=== PATIENT | female | born 1930 | race Caucasian/White ===

== ENCOUNTER 2017-04-19 09:08 | Inpatient (IN) | payer OTHER ==
--- NOTE | 2017-04-19 09:19 | PDOC ---
History of Present Illness - General Chief Complaint: Asthma Stated Complaint: SHORTNESS OF BREATH Time Seen by Provider: 04/19/17 09:18 Past History - Past Medical History Allergies/Adverse Reactions: Allergies Allergy/AdvReac Type Severity Reaction Status Date / Time Penicillins Allergy Verified 09/09/14 14:44 shellfish derived Allergy Verified 09/09/14 14:44 Sulfa (Sulfonamide Allergy Verified 09/09/14 14:44 Antibiotics) [Sulfa(Sulfonamide Antibiotics)] Home Medications: Ambulatory Orders Furosemide [Lasix -] 40 mg PO DAILY 07/19/14 Albuterol 0.083% Nebulizer Sulema [Ventolin 0.083% Nebulizer Soln -] 1 neb NEB Q4H PRN #0 vial 07/26/14 Gabapentin [Neurontin -] 100 mg PO BID capsule 07/26/14 Pantoprazole Sodium [Protonix -] 40 mg PO DAILY tablet.ec 07/26/14 Potassium Chloride Oral Soln [KCl Oral Solution -] 20 meq PO BID cup 07/26/14 Salmeterol/Fluticasone [Advair 100Mcg/50Mcg -] 1 inh IH BID inh 07/26/14 Clotrimazole/Betamet Diprop [Lotrisone -] 1 applic TP BID tube 09/14/14 Enoxaparin [Lovenox -] 40 mg SQ DAILY disp.syrin 09/14/14 Mineral Oil Enema [Fleet Mineral Oil Rectal Enema -] 133 ml NC DAILY PRN #0 enema 09/14/14 Polyethylene Glycol 3350 [Miralax 119 gm Btl -] 17 gm PO BID bottle 09/14/14 Sennosides [Senna -] 2 tab PO BID tablet 09/14/14 traMADol HCL [Ultram -] 50 mg PO Q6H PRN #0 tablet 09/14/14 Asthma: Yes Cardiac Disorders: Yes (atrial fibrillation) Diabetes: Yes GI Disorders: Yes (diverticulitis) HTN: (HYPOTENSION.) - Surgical History Abdominal Surgery: Yes Appendectomy: Yes Cholecystectomy: Yes - Immunization History TDAP Vaccination: Yes Immunization Up to Date: Yes - Suicide/Smoking/Psychosocial Hx Smoking Status: No Smoking History: Never smoked Have you smoked in the past 12 months: No Number of Cigarettes Smoked Daily: 0 Hx Alcohol Use: No Drug/Substance Use Hx: No Substance Use Type: None
--- NOTE | 2017-04-19 09:20 | PDOC ---
Attending Attestation - HPI HPI: 04/19/17 10:21 The patient is a 87 year old female, with a significant past medical history of type 2 diabetes, left hip replacement, A-fib, diverticulitis, hepatitis C, rheumatoid arthritis, COPD, pneumonia, and asthma, who presents to the emergency department with, two days of shortness of breath and a nonproductive cough. As per patients daughter, she lives alone and they check in on her in person and via a camera. She reports the patient was feeling sick a week. She reports yesterday the patient began having labored breathing with an associated non-productive cough. She denies recent fevers, chills, headache or dizziness. She denies recent nausea, vomit, diarrhea or constipation. She denies recent dysuria, frequency, urgency or hematuria. She denies recent chest pain. Allergies: Penicillin, Shellfish derived, Sulfa (Sulfa antibiotics) Social history: Nonsmoker. Denies EtOH use and recreational drug use. Primary Care Physician: Dr. Damián Hernández <Donald Sifuentes - Last Filed: 04/19/17 10:21> - Resident Resident Name: Concetta Delvalle - ED Attending Attestation I have performed the following: I have examined & evaluated the patient, The case was reviewed & discussed with the resident, I agree w/resident's findings & plan, Exceptions are as noted - Physicial Exam PE: GENERAL: Awake, alert, and fully oriented, in no acute distress HEAD: No signs of trauma EYES: PERRLA, EOMI, sclera anicteric, conjunctiva clear ENT: Auricles normal inspection, hearing grossly normal, nares patent, oropharynx clear without exudates. Moist mucosa NECK: Normal ROM, supple, no lymphadenopathy, JVD, or masses LUNGS: +Tachypnea, diffuse wheezes. Able to speak 3-4 word sentences. HEART: Irregularly irregular, normal S1 and S2, no murmurs, rubs or gallops ABDOMEN: Soft, nontender, normoactive bowel sounds. No guarding, no rebound. No masses EXTREMITIES: Normal range of motion, no edema. No clubbing or cyanosis. No cords, erythema, or tenderness NEUROLOGICAL: Cranial nerves II through XII grossly intact. Normal speech. Motor and sensation intact. SKIN: Warm, Dry, normal turgor, no rashes or lesions noted. - Medical Decision Making 04/19/17 09:56 Pt presents with fever, SOB, cough. Sepsis protocol initiated. DDx includes pna , influenza, CHF, asthma exacerbation due to viral illness. No peripheral edema , which would suggest this is likely asthma. Will place on BiPAP to decrease work of breathing, give nebs. Await CXR to further evvaluate. <Maira Almonte - Last Filed: 04/19/17 11:43> Attestations - Attestations 04/19/17 10:22 Documentation prepared by Donald Sifuentes, acting as medical physics teacher for Maira Almonte MD. <Donald Sifuentes - Last Filed: 04/19/17 10:21>
--- NOTE | 2017-04-19 09:30 | PDOC ---
History of Present Illness - General Chief Complaint: Asthma Stated Complaint: SHORTNESS OF BREATH Time Seen by Provider: 04/19/17 09:18 History Source: Patient, Family - History of Present Illness Initial Comments: 04/19/17 09:34 87 y.o. female with a PMH of COPD (not on home O2), Hepatitis C, Asthma, AFib ( not on A/C secondary to low platelets 2/2 Hepatitis C) presents to our ED today c/o 24 hour history of non-productive cough and subjective dyspnea. Patient's daughter @ bedside notes PO temp 99 yesterday evening. As patient continued to cough, patient's daughter decided to bring her to our ED this morning. Patient denies any chest pain, abdominal pain, dysuria/hematuria. Allergy: Sulfa, Penicillin Social: denies alcohol PMD: Dr. June Past History - Past Medical History Allergies/Adverse Reactions: Allergies Allergy/AdvReac Type Severity Reaction Status Date / Time Penicillins Allergy Severe Difficulty Verified 04/19/17 09:21 Breathing shellfish derived Allergy Severe Difficulty Verified 04/19/17 09:21 Breathing Sulfa (Sulfonamide Allergy Intermediate Difficulty Verified 04/19/17 09:21 Antibiotics) Breathing [Sulfa(Sulfonamide Antibiotics)] Home Medications: Ambulatory Orders Furosemide [Lasix -] 40 mg PO DAILY 07/19/14 Albuterol 0.083% Nebulizer Sulema [Ventolin 0.083% Nebulizer Soln -] 1 neb NEB Q4H PRN #0 vial 07/26/14 Pantoprazole Sodium [Protonix -] 40 mg PO DAILY tablet.ec 07/26/14 Potassium Chloride Oral Soln [KCl Oral Solution -] 20 meq PO BID cup 07/26/14 Salmeterol/Fluticasone [Advair 100Mcg/50Mcg -] 1 inh IH BID inh 07/26/14 Clotrimazole/Betamet Diprop [Lotrisone -] 1 applic TP BID tube 09/14/14 Aspirin 81 mg PO ASDIR 04/19/17 Asthma: Yes Cardiac Disorders: Yes (atrial fibrillation) COPD: Yes Diabetes: Yes GI Disorders: Yes (diverticulitis) HTN: (HYPOTENSION.) - Surgical History Abdominal Surgery: Yes Appendectomy: Yes Cholecystectomy: Yes - Immunization History TDAP Vaccination: Yes Immunization Up to Date: Yes - Suicide/Smoking/Psychosocial Hx Smoking Status: No Smoking History: Never smoked Have you smoked in the past 12 months: No Number of Cigarettes Smoked Daily: 0 Hx Alcohol Use: No Drug/Substance Use Hx: No Substance Use Type: None Review of Systems - Review of Systems Constitutional: No: Chills, Fever HEENTM: No: Recent change in vision Respiratory: Yes: Cough. No: Shortness of Breath, Wheezing, Hemoptysis Cardiac (ROS): No: Chest Pain, Lightheadedness, Palpitations, Syncope ABD/GI: No: Constipated, Diarrhea, Nausea, Vomiting : No: Burning, Dysuria All Other Systems: Reviewed and Negative *Physical Exam - Vital Signs Last Vital Signs Temp Pulse Resp BP Pulse Ox 98.4 F 70 32 H 135/79 97 04/19/17 09:18 04/19/17 09:18 04/19/17 09:18 04/19/17 09:18 04/19/17 09:18 - Physical Exam Comments: 04/20/17 17:59 GENERAL: Awake, alert, and fully oriented, in no acute distress HEAD: No signs of trauma EYES: PERRLA, EOMI, sclera anicteric, conjunctiva clear ENT: erythematous oropharynx without any exudates NECK: Normal ROM, supple, no lymphadenopathy, JVD, or masses LUNGS: B/L wheezes asculatated on anterior and posterior lung guerrero HEART: Irregularly irregular, normal S1 and S2, no murmurs, rubs or gallops ABDOMEN: Soft, nontender, normoactive bowel sounds. No guarding, no rebound. No masses EXTREMITIES: Normal range of motion, no edema. No clubbing or cyanosis. No cords, erythema, or tenderness SKIN: Warm, Dry, normal turgor, no rashes or lesions noted ED Treatment Course - LABORATORY CBC & Chemistry Diagram: 04/20/17 08:55 04/20/17 08:55 Medical Decision Making - Medical Decision Making 04/19/17 11:35 87 y.o. female w/ PMH of COPD presents with fever, non-productive cough. Patient RR 32, Temp 100, adult sepsis protocol initiated. Clinical work-up focused on COPD exacerbation, PNA, Asthma. Increased work of breathing, will start patient on NRB. 04/19/17 11:49 Platelet 25 - likely 2/2 to Hepatitis C (65 in 2015). BNP 1200, suggestive of CHF. Case d/w Dr. Cheryl Sanchez - will admit patient to telemetry. Patient on Tylenol for fever + Vanc/Aztreonam. Breathing comfortable on BiPAP. Will continue to monitor while in ED. *DC/Admit/Observation/Transfer Diagnosis at time of Disposition: Fever - Discharge Dispostion Condition at time of disposition: Fair Admit: Yes - Referrals - Patient Instructions - Post Discharge Activity
[2017-04-19 09:43] VITALS: BMI 22.4
[2017-04-19 09:56] LABS: BASO % 0.2 % (0-2.0); EOS % 0.2 % (0-4.5); HEMATOCRIT 37.1 % (32.4-45.2); HEMOGLOBIN 12.3 GM/dL (10.7-15.3); LYMPH % 8.5 % (8-40); MCH 29.3 pg (25.7-33.7); MCHC 33.3 g/dl (32.0-36.0); MEAN CELL VOLUME 87.9 fl (80-96); MEAN PLT VOLUME 9.4 fl (7.5-11.1); MONO % 6.1 % (3.8-10.2); RBC 4.22 M/mm3 (3.60-5.2); RDW 15.6 % (11.6-15.6); WHITE BLOOD COUNT 5.7 K/mm3 (4.0-10.0)
[2017-04-19 10:02] LABS: VENOUS PH 7.37 (7.32-7.42)
[2017-04-19 10:07] LABS: PLATELET COUNT 28 K/MM3 (134-434)
[2017-04-19 10:21] LABS: INR 1.2 (0.82-1.09); PROTHROMBIN TIME (PATIENT) 13.6 SEC (9.98-11.88)
[2017-04-19 10:22] LABS: ANION GAP 9 (8-16); BILIRUBIN,TOTAL 1.3 mg/dL (0.2-1.0); BLOOD UREA NITROGEN 16 mg/dL (7-18); CALCIUM 8.3 mg/dL (8.5-10.1); CHLORIDE 105 mmol/L (98-107); CO2 26 mmol/L (21-32); CREATININE 0.9 mg/dL (0.55-1.02); GLUCOSE,RANDOM 135 mg/dL (74-106); POTASSIUM 3.6 mmol/L (3.5-5.1); SGOT/AST 16 U/L (15-37); SGPT/ALT 14 U/L (12-78); SODIUM 140 mmol/L (136-145); TOT PROT 7.3 g/dl (6.4-8.2)
[2017-04-19 10:24] LABS: ACTIVATED PTT 29.5 SECONDS (26.9-34.4)
[2017-04-19 10:25] LABS: ALK PHOS 90 U/L (45-117)
[2017-04-19] MEDS ORDERED: VANCOMYCIN 1,000 MG in DEXTROSE 5%-WATER - 250 ML IVPB ONE (11:37)
[2017-04-19] MEDS ORDERED: OSELTAMIVIR PHOSPHATE 75 MG CAPSULE PO ONE (11:37)
[2017-04-19] MEDS ORDERED: ACETAMINOPHEN 325 MG TABLET (FP) PO ONE (11:38)
[2017-04-19 11:39] LABS: URINE APPEARANCE SLCLOUDY; URINE BILIRUBIN NEGATIVE (NEGATIVE); URINE BLOOD 3+ (NEGATIVE); URINE COLOR AMBER; URINE GLUCOSE (UA) NEGATIVE (NEGATIVE); URINE KETONE TRACE (NEGATIVE); URINE NITRITE POSITIVE (NEGATIVE); URINE UROBILINOGEN NEGATIVE mg/dL (0.2-1.0)
[2017-04-19] MEDS ORDERED: AZTREONAM 1 GM in DEXTROSE 5%-WATER - 50 ML IVPB ONE (11:40)
[2017-04-19] MEDS ORDERED: VANCOMYCIN 1 GRAM (PRE-DOCKED) 1,000 MG/250 ML BAG IVPB ONE (11:41)
[2017-04-19] MEDS ORDERED: OSELTAMIVIR PHOSPHATE 75 MG CAPSULE ONE (11:41)
[2017-04-19] MEDS ORDERED: ACETAMINOPHEN 325 MG TABLET (FP) ONE (11:41)
[2017-04-19 11:43] LABS: URINE PROTEIN 1+ (NEGATIVE)
[2017-04-19 11:44] LABS: EPI CELLS RARE /HPF (FEW); URINE BACTERIA MANY /hpf (NONE SEEN); URINE LEUK ESTERASE 3+ (NEGATIVE); URINE MUCUS MODERATE; YEAST FEW
[2017-04-19] MEDS ORDERED: ALBUTEROL SO4 0.083% IH SOL 2.5 MG/3 ML VIAL.NEB. NEB PRN (13:34)
--- NOTE | 2017-04-19 13:39 | HP ---
Admitting History and Physical - Primary Care Physician PCP: Damián Hernández - Admission Chief Complaint: cough, dyspnea History of Present Illness: developed dry cough a couple days ago, got worse , by this am with associated dyspnea and fever. in er required BIAP due to respiratory distress. currently feels more comfortable. 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, none now) - Past Surgical History Past Surgical History: Yes: Cholecystectomy, Hysterectomy, Joint Replacement (L Hip) - Smoking History Smoking history: Never smoked Have you smoked in the past 12 months: No Aproximately how many cigarettes per day: 0 - Alcohol/Substance Use Hx Alcohol Use: No - Social History Usual Living Arrangement: Yes: Alone ADL: Independent History of Recent Travel: No Home Medications - Allergies Allergies/Adverse Reactions: Allergies Allergy/AdvReac Type Severity Reaction Status Date / Time Penicillins Allergy Severe Difficulty Verified 04/19/17 09:21 Breathing shellfish derived Allergy Severe Difficulty Verified 04/19/17 09:21 Breathing Sulfa (Sulfonamide Allergy Intermediate Difficulty Verified 04/19/17 09:21 Antibiotics) Breathing [Sulfa(Sulfonamide Antibiotics)] - Home Medications Home Medications: Ambulatory Orders Furosemide [Lasix -] 40 mg PO DAILY 07/19/14 Albuterol 0.083% Nebulizer Sulema [Ventolin 0.083% Nebulizer Soln -] 1 neb NEB Q4H PRN #0 vial 07/26/14 Pantoprazole Sodium [Protonix -] 40 mg PO DAILY tablet.ec 07/26/14 Potassium Chloride Oral Soln [KCl Oral Solution -] 20 meq PO BID cup 07/26/14 Salmeterol/Fluticasone [Advair 100Mcg/50Mcg -] 1 inh IH BID inh 07/26/14 Clotrimazole/Betamet Diprop [Lotrisone -] 1 applic TP BID tube 09/14/14 Aspirin 81 mg PO ASDIR 04/19/17 Family Disease History - Family Disease History Family Disease History: Diabetes: Father (gastic ca?), Mother Review of Systems - Review of Systems Constitutional: reports: Fever, Loss of Appetite, Weakness Respiratory: reports: Cough, SOB on Exertion, Wheezing Physical Examination Vital Signs: Vital Signs Temperature 100.9 F H 04/19/17 09:28 Pulse Rate 82 04/19/17 13:17 Respiratory Rate 28 H 04/19/17 13:17 Blood Pressure 129/65 04/19/17 13:17 O2 Sat by Pulse Oximetry (%) 100 04/19/17 13:17 Constitutional: Yes: Well Nourished, No Distress, Calm, Other (on BIPAP) Eyes: Yes: Conjunctiva Clear HENT: Yes: Normocephalic, Pharyngeal Erythema Neck: Yes: Trachea Midline Cardiovascular: Yes: Pulse Irregular, S1, S2 Respiratory: Yes: Rhonchi, Wheezes (bilaterally, scattered) Gastrointestinal: Yes: Normal Bowel Sounds, Soft Extremities: Yes: WNL Edema: Yes Edema: LLE: 1+, RLE: 1+ Peripheral Pulses WNL: Yes Integumentary: Yes: Bruising (small on upper arms due to recent injuries) Neurological: Yes: WNL ...Motor Strength: WNL Psychiatric: Yes: WNL Labs: CBC, BMP 04/19/17 09:35 04/19/17 09:35 Abnormal Lab Results 04/19/17 04/19/17 04/19/17 09:28 09:35 09:35 Plt Count 28 L* D Neutrophils % 85.0 H D PT with INR 13.60 H INR 1.20 H POC VBG pO2 Random Glucose Lactic Acid Calcium Total Bilirubin B-Natriuretic Peptide Urine Protein 1+ H Urine Ketones Trace H Urine Blood 3+ H Ur Leukocyte Esterase 3+ H 04/19/17 04/19/17 04/19/17 09:35 09:35 09:35 Plt Count Neutrophils % PT with INR INR POC VBG pO2 23.0 L Random Glucose 135 H Lactic Acid 3.2 H* Calcium 8.3 L Total Bilirubin 1.3 H B-Natriuretic Peptide Urine Protein Urine Ketones Urine Blood Ur Leukocyte Esterase 04/19/17 09:35 Plt Count Neutrophils % PT with INR INR POC VBG pO2 Random Glucose Lactic Acid Calcium Total Bilirubin B-Natriuretic Peptide 3039.55 H Urine Protein Urine Ketones Urine Blood Ur Leukocyte Esterase Imaging - Results Chest X-ray: Image Reviewed Problem List - Problems (1) Asthma exacerbation Code(s): J45.901 - UNSPECIFIED ASTHMA WITH (ACUTE) EXACERBATION Qualifiers: Asthma persistence: intermittent (2) Bronchitis Code(s): J40 - BRONCHITIS, NOT SPECIFIED ACUTE OR CHRONIC (3) Thrombocytopenia Code(s): D69.6 - THROMBOCYTOPENIA, UNSPECIFIED (4) Asthma Code(s): J45.909 - UNSPECIFIED ASTHMA, UNCOMPLICATED Qualifiers: Asthma severity: moderate Asthma complication type: with acute exacerbation (5) Hepatitis C Code(s): B19.20 - UNSPECIFIED VIRAL HEPATITIS C WITHOUT HEPATIC COMA Qualifiers: Viral hepatitis chronicity: chronic Hepatic coma status: without hepatic coma Qualified Code(s): B18.2 - Chronic viral hepatitis C Assessment/Plan stop ASA due to thrombocytopenia iv antibiotic iv steroids taper BIPAP as tolerated mild UTI on UA, will follow cultures d/w daughter accoriding to pt's wishes DNR/DNI
[2017-04-19] MEDS ORDERED: methylPREDNISolone NA SUCC 40 MG/1 ML VIAL ONE (14:08)
[2017-04-19] MEDS: methylPREDNISolone NA SUCC 40 MG/1 ML VIAL IVPB SCH ×2 (14:12→17:28)
--- NOTE | 2017-04-19 18:24 | CON.PULM ---
Consult Consult Specialty:: PULMONARY Referred by:: Dr. Sanchez Reason for Consultation:: COPD exacerbation - History of Present Illness Chief Complaint: shortness of breath History of Present Illness: 87yo female with h/o atrial fibrillation, Hep C, asthma/COPD who was admitted with worsening shortness of breath and cough x 2 days. Denies any fevers, chills or sweats. No chest pain or palpitations. She does report a nonproductive cough as well as wheezing and chest tightness. She is maintained at home on Advair and albuterol. No recent travel. She is a never smoker, diagnosed with asthma as an adult. 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, none now) - Past Surgical History Past Surgical History: Yes: Cholecystectomy, Hysterectomy, Joint Replacement (L Hip) - Alcohol/Substance Use Hx Alcohol Use: No - Smoking History Smoking history: Never smoked Have you smoked in the past 12 months: No Aproximately how many cigarettes per day: 0 - Social History ADL: Independent History of Recent Travel: No Home Medications - Allergies Allergies/Adverse Reactions: Allergies Allergy/AdvReac Type Severity Reaction Status Date / Time Penicillins Allergy Severe Difficulty Verified 04/19/17 09:21 Breathing shellfish derived Allergy Severe Difficulty Verified 04/19/17 09:21 Breathing Sulfa (Sulfonamide Allergy Intermediate Difficulty Verified 04/19/17 09:21 Antibiotics) Breathing [Sulfa(Sulfonamide Antibiotics)] - Home Medications Home Medications: Ambulatory Orders Furosemide [Lasix -] 40 mg PO DAILY 07/19/14 Albuterol 0.083% Nebulizer Sulema [Ventolin 0.083% Nebulizer Soln -] 1 neb NEB Q4H PRN #0 vial 07/26/14 Pantoprazole Sodium [Protonix -] 40 mg PO DAILY tablet.ec 07/26/14 Potassium Chloride Oral Soln [KCl Oral Solution -] 20 meq PO BID cup 07/26/14 Salmeterol/Fluticasone [Advair 100Mcg/50Mcg -] 1 inh IH BID inh 07/26/14 Clotrimazole/Betamet Diprop [Lotrisone -] 1 applic TP BID tube 09/14/14 Aspirin 81 mg PO ASDIR 04/19/17 Family Disease History - Family Disease History Family Disease History: Diabetes: Father (gastic ca?), Mother Review of Systems - Review of Systems Constitutional: reports: Malaise, Weakness. denies: Chills, Fever Eyes: denies: Recent Change in Vision HENT: reports: Throat Pain. denies: Nasal Congestion Neck: denies: Stiffness, Tenderness Cardiovascular: reports: Shortness of Breath. denies: Chest Pain, Edema, Palpitations Respiratory: reports: Cough, Exercise Intolerance, SOB, SOB on Exertion, Wheezing. denies: Hemoptysis Gastrointestinal: denies: Abdominal Pain, Nausea, Vomiting Genitourinary: denies: Dysuria Neurological: denies: Dizziness, Headache Physical Exam Vital Sings: Vital Signs Temperature 98.3 F 04/19/17 16:53 Pulse Rate 74 04/19/17 16:53 Respiratory Rate 24 04/19/17 16:53 Blood Pressure 118/67 04/19/17 16:53 O2 Sat by Pulse Oximetry (%) 95 04/19/17 16:53 Constitutional: Yes: Calm Eyes: Yes: Conjunctiva Clear, EOM Intact HENT: Yes: Atraumatic, Normocephalic Neck: Yes: Supple, Trachea Midline Cardiovascular: Yes: Regular Rate and Rhythm Respiratory: Yes: Rhonchi, Wheezes ...Clubbing: No Gastrointestinal: Yes: Normal Bowel Sounds, Soft. No: Tenderness Edema: No Neurological: Yes: Alert, Oriented Labs: CBC, BMP 04/19/17 09:35 04/19/17 09:35 Imaging - Results Chest X-ray: Report Reviewed, Image Reviewed (no infiltrates) Problem List - Problems (1) Asthma exacerbation Code(s): J45.901 - UNSPECIFIED ASTHMA WITH (ACUTE) EXACERBATION Qualifiers: Asthma persistence: intermittent (2) UTI (urinary tract infection) Code(s): N39.0 - URINARY TRACT INFECTION, SITE NOT SPECIFIED (3) Thrombocytopenia Code(s): D69.6 - THROMBOCYTOPENIA, UNSPECIFIED (4) Hepatitis C Code(s): B19.20 - UNSPECIFIED VIRAL HEPATITIS C WITHOUT HEPATIC COMA Qualifiers: Viral hepatitis chronicity: chronic Hepatic coma status: without hepatic coma Qualified Code(s): B18.2 - Chronic viral hepatitis C (5) Atrial fibrillation Code(s): I48.91 - UNSPECIFIED ATRIAL FIBRILLATION Assessment/Plan Acute Asthma/COPD Exacerbation Acute Bronchitis r/o UTI Atrial Fibrillation Thrombocytopenia Hep C - IV medrol - inhaled bronchodilators standing and PRN - monitor peak flow - will start empiric antibiotics - f/u cultures - will add singulair - O2 to keep spO2 >90% - monitor heart rate on standing nebs - monitor CBC - DVT prophylaxis Thank you for this consult Anjum Garrison MD
[2017-04-19] MEDS: ALBUTEROL SO4 2.5/IPRATROPIUM 0.5 INH SOL 3 ML VIAL.NEB. NEB SCH (20:00)
[2017-04-19] MEDS: FLUTICASONE/SALMETEROL 100 MCG/50 MCG DISKUS IH SCH (21:44)
[2017-04-19] MEDS: POTASSIUM CHLORIDE ORAL LIQUID 20 MEQ/15 ML PO SCH (21:45)
[2017-04-19] MEDS: MONTELUKAST NA 10 MG TABLET PO SCH (21:48)
[2017-04-20] MEDS: methylPREDNISolone NA SUCC 40 MG/1 ML VIAL IVPB SCH (02:08)
[2017-04-20] MEDS: ALBUTEROL SO4 2.5/IPRATROPIUM 0.5 INH SOL 3 ML VIAL.NEB. NEB SCH ×3 (07:35→20:30)
--- NOTE | 2017-04-20 08:38 | PN ---
Progress Note (short form) - Note Progress Note: off of BIPAP c/o dry cough throughout the night s1s2 irreg.irreg lungs diffuse bilateral wheezing abd soft no edema aaox3 acute asthma exacerbation bronchitis Afib hepatitis C UTI iv steroids iv abx GI prophylaxis can not give ac due to severe thrombocytopenia due to HCV f/up cultures physical therapy as tolerated Problem List - Problems (1) Asthma exacerbation Code(s): J45.901 - UNSPECIFIED ASTHMA WITH (ACUTE) EXACERBATION Qualifiers: Asthma persistence: intermittent (2) Bronchitis Code(s): J40 - BRONCHITIS, NOT SPECIFIED ACUTE OR CHRONIC (3) Thrombocytopenia Code(s): D69.6 - THROMBOCYTOPENIA, UNSPECIFIED (4) Asthma Code(s): J45.909 - UNSPECIFIED ASTHMA, UNCOMPLICATED Qualifiers: Asthma severity: moderate Asthma complication type: with acute exacerbation (5) Hepatitis C Code(s): B19.20 - UNSPECIFIED VIRAL HEPATITIS C WITHOUT HEPATIC COMA Qualifiers: Viral hepatitis chronicity: chronic Hepatic coma status: without hepatic coma Qualified Code(s): B18.2 - Chronic viral hepatitis C
[2017-04-20 09:16] LABS: BASO % 0.1 % (0-2.0); HEMOGLOBIN 11.4 GM/dL (10.7-15.3); LYMPH % 5.3 % (8-40); MCH 29.5 pg (25.7-33.7); MCHC 33.7 g/dl (32.0-36.0); MEAN CELL VOLUME 87.4 fl (80-96); MONO % 2.6 % (3.8-10.2); RBC 3.89 M/mm3 (3.60-5.2); RDW 15.7 % (11.6-15.6); WHITE BLOOD COUNT 5.9 K/mm3 (4.0-10.0)
[2017-04-20] MEDS ORDERED: PT OWN MED DRAWER 7, Y5N ONE (09:16)
[2017-04-20] MEDS: POTASSIUM CHLORIDE ORAL LIQUID 20 MEQ/15 ML PO SCH ×2 (09:18→21:53)
[2017-04-20] MEDS: FLUTICASONE/SALMETEROL 100 MCG/50 MCG DISKUS IH SCH ×2 (09:20→21:52)
[2017-04-20] MEDS: FUROSEMIDE 40 MG TABLET (FP) PO SCH (09:20)
[2017-04-20] MEDS: guaiFENesin 200 MG/10 ML 10 ML UNIT-DOSE CUPS PO PRN ×2 (09:20→21:53)
[2017-04-20] MEDS: PANTOPRAZOLE 40 MG TABLET (FP) PO SCH (09:20)
[2017-04-20] MEDS: methylPREDNISolone NA SUCC 125 MG/2 ML VIAL IVPB SCH ×2 (09:21→19:25)
[2017-04-20 09:35] LABS: ALBUMIN 3.4 g/dl (3.4-5.0); ANION GAP 10 (8-16); BLOOD UREA NITROGEN 23 mg/dL (7-18); CALCIUM 8.8 mg/dL (8.5-10.1); CHLORIDE 106 mmol/L (98-107); CO2 23 mmol/L (21-32); CREATININE 0.9 mg/dL (0.55-1.02); GLUCOSE,RANDOM 236 mg/dL (74-106); POTASSIUM 4.3 mmol/L (3.5-5.1); SGOT/AST 12 U/L (15-37); SGPT/ALT 13 U/L (12-78); SODIUM 139 mmol/L (136-145)
[2017-04-20 09:37] LABS: ALK PHOS 73 U/L (45-117); BILIRUBIN,TOTAL 1.1 mg/dL (0.2-1.0); TOT PROT 6.8 g/dl (6.4-8.2)
[2017-04-20 09:47] LABS: MEAN PLT VOLUME 10.4 fl (7.5-11.1)
[2017-04-20 09:48] LABS: PLATELET ESTIMATE DECREASED
[2017-04-20 09:52] LABS: PLATELET COUNT 28 K/MM3 (134-434)
--- NOTE | 2017-04-20 10:46 | EKG ---
Test Reason : Blood Pressure : / mmHG Vent. Rate : 084 BPM Atrial Rate : 104 BPM P-R Int : 000 ms QRS Dur : 078 ms QT Int : 362 ms P-R-T Axes : 000 006 029 degrees QTc Int : 427 ms ATRIAL FIBRILLATION LOW VOLTAGE QRS ABNORMAL ECG WHEN COMPARED WITH ECG OF 09-SEP-2014 19:03, NO SIGNIFICANT CHANGE WAS FOUND Confirmed by RAFAELA COULTER MD ([id number]) on 04/20/2017 10:46:35 AM Referred By: Confirmed By:RAFAELA COULTER MD
--- NOTE | 2017-04-20 12:25 | PN ---
Progress Note, Physician History of Present Illness: pulmonary alert,still very congested,+ cough,dyspneic - Current Medication List Current Medications: Active Medications Albuterol Sulfate (Ventolin 0.083% Nebulizer Soln -) 1 amp NEB Q4H PRN PRN Reason: SHORT OF BREATH/WHEEZING Last Admin: 04/19/17 16:56 Dose: 1 amp Albuterol/Ipratropium (Duoneb -) 1 amp NEB RTID [facility] Last Admin: 04/20/17 07:35 Dose: 1 amp Furosemide (Lasix -) 40 mg PO DAILY [facility] Last Admin: 04/20/17 09:20 Dose: 40 mg Guaifenesin (Robitussin -) 10 ml PO Q6H PRN PRN Reason: COUGH Last Admin: 04/20/17 09:20 Dose: 10 ml Levofloxacin (Levaquin 250 Mg Premixed Ivpb -) 250 mg in 50 mls @ 50 mls/hr IVPB DAILY [facility] Methylprednisolone Sodium Succinate (Solu-Medrol -) 60 mg IVPB Q8H-IV [facility] Last Admin: 04/20/17 09:21 Dose: 60 mg Montelukast Sodium (Singulair -) 10 mg PO HS [facility] Last Admin: 04/19/17 21:48 Dose: 10 mg Pantoprazole Sodium (Protonix -) 40 mg PO DAILY [facility] Last Admin: 04/20/17 09:20 Dose: 40 mg Potassium Chloride (Potassium Chloride Oral Liquid) 20 meq PO BID [facility] Last Admin: 04/20/17 09:18 Dose: 20 meq Fluticasone/Salmeterol (Advair 100mcg/50mcg -) 1 puff IH BID [facility] Last Admin: 04/20/17 09:20 Dose: 1 puff - Objective Vital Signs: Vital Signs Temperature 97.9 F 04/20/17 10:00 Pulse Rate 89 04/20/17 10:00 Respiratory Rate 20 04/20/17 10:00 Blood Pressure 113/58 04/20/17 10:00 O2 Sat by Pulse Oximetry (%) 96 04/20/17 09:00 Constitutional: Yes: Well Nourished, Calm Eyes: Yes: WNL HENT: Yes: WNL Neck: Yes: WNL Cardiovascular: Yes: Regular Rate and Rhythm, S1, S2 Respiratory: Yes: Rhonchi (bilateral wheezes and rhonchi), Wheezes Gastrointestinal: Yes: Normal Bowel Sounds, Soft Extremities: Yes: WNL Edema: No Labs: CBC, BMP 04/20/17 08:55 04/20/17 08:55 INR, PTT INR 1.20 (0.82-1.09) H 04/19/17 09:35 Assessment/Plan Problem List - Problems (1) Asthma exacerbation Code(s): J45.901 - UNSPECIFIED ASTHMA WITH (ACUTE) EXACERBATION Qualifiers: Asthma persistence: intermittent (2) UTI (urinary tract infection) Code(s): N39.0 - URINARY TRACT INFECTION, SITE NOT SPECIFIED (3) Thrombocytopenia Code(s): D69.6 - THROMBOCYTOPENIA, UNSPECIFIED (4) Hepatitis C Code(s): B19.20 - UNSPECIFIED VIRAL HEPATITIS C WITHOUT HEPATIC COMA Qualifiers: Viral hepatitis chronicity: chronic Hepatic coma status: without hepatic coma Qualified Code(s): B18.2 - Chronic viral hepatitis C (5) Atrial fibrillation Code(s): I48.91 - UNSPECIFIED ATRIAL FIBRILLATION Assessment/Plan Acute Asthma/COPD Exacerbation Acute Bronchitis r/o UTI Atrial Fibrillation Thrombocytopenia Hep C - IV medrol same dose - inhaled bronchodilators - monitor peak flow - empiric antibiotics - singulair - O2 to keep spO2 >90% - monitor heart rate on standing nebs - monitor CBC,plt ct - DVT prophylaxis DR AVERY
[2017-04-20] MEDS: MONTELUKAST NA 10 MG TABLET PO SCH (21:53)
[2017-04-21] MEDS: methylPREDNISolone NA SUCC 125 MG/2 ML VIAL IVPB SCH ×3 (02:24→17:11)
[2017-04-21] MEDS: guaiFENesin 200 MG/10 ML 10 ML UNIT-DOSE CUPS PO PRN (06:15)
--- NOTE | 2017-04-21 06:45 | PN ---
Progress Note (short form) - Note Progress Note: c/o dry cough throughout the night CBC, BMP 04/20/17 08:55 04/20/17 08:55 BNP 3600 Vital Signs Period Temp Pulse Resp BP Sys/Mcnamara Pulse Ox Last 24 Hr 97.4 F-97.9 F 74-89 18-20 113-137/57-81 98 s1s2 irreg.irreg lungs diffuse bilateral wheezing-little better abd soft no edema aaox3 acute asthma exacerbation bronchitis Afib hepatitis C UTI iv steroids iv abx GI prophylaxis can not give ac due to severe thrombocytopenia due to HCV f/up cultures physical therapy as tolerated check ECHO repeat CXR Problem List - Problems (1) Asthma exacerbation Code(s): J45.901 - UNSPECIFIED ASTHMA WITH (ACUTE) EXACERBATION Qualifiers: Asthma persistence: intermittent (2) Bronchitis Code(s): J40 - BRONCHITIS, NOT SPECIFIED ACUTE OR CHRONIC (3) Thrombocytopenia Code(s): D69.6 - THROMBOCYTOPENIA, UNSPECIFIED (4) Asthma Code(s): J45.909 - UNSPECIFIED ASTHMA, UNCOMPLICATED Qualifiers: Asthma severity: moderate Asthma complication type: with acute exacerbation (5) Hepatitis C Code(s): B19.20 - UNSPECIFIED VIRAL HEPATITIS C WITHOUT HEPATIC COMA Qualifiers: Viral hepatitis chronicity: chronic Hepatic coma status: without hepatic coma Qualified Code(s): B18.2 - Chronic viral hepatitis C
[2017-04-21] MEDS: ALBUTEROL SO4 2.5/IPRATROPIUM 0.5 INH SOL 3 ML VIAL.NEB. NEB SCH ×3 (07:40→20:46)
[2017-04-21] MEDS: glipiZIDE 5 MG TABLET (FP) PO SCH ×2 (07:41→17:10)
[2017-04-21] MEDS: FUROSEMIDE 40 MG TABLET (FP) PO SCH (09:16)
[2017-04-21] MEDS: PANTOPRAZOLE 40 MG TABLET (FP) PO SCH (09:16)
[2017-04-21] MEDS: FLUTICASONE/SALMETEROL 100 MCG/50 MCG DISKUS IH SCH ×2 (09:16→22:43)
[2017-04-21] MEDS: POTASSIUM CHLORIDE TABS 20 MEQ TABLET.ER (FP) PO SCH ×2 (09:56→22:43)
--- NOTE | 2017-04-21 11:19 | PN ---
Progress Note, Physician History of Present Illness: PULMONARY ALERT,LESS CONGESTED,+ COUGH - Current Medication List Current Medications: Active Medications Albuterol Sulfate (Ventolin 0.083% Nebulizer Soln -) 1 amp NEB Q4H PRN PRN Reason: SHORT OF BREATH/WHEEZING Last Admin: 04/19/17 16:56 Dose: 1 amp Albuterol/Ipratropium (Duoneb -) 1 amp NEB RTID [facility] Last Admin: 04/21/17 07:40 Dose: 1 amp Furosemide (Lasix -) 40 mg PO DAILY [facility] Last Admin: 04/21/17 09:16 Dose: 40 mg Glipizide (Glucotrol -) 5 mg PO BID@0700,1630 [facility] Last Admin: 04/21/17 07:41 Dose: 5 mg Guaifenesin (Robitussin -) 10 ml PO Q6H PRN PRN Reason: COUGH Last Admin: 04/21/17 06:15 Dose: 10 ml Levofloxacin (Levaquin 250 Mg Premixed Ivpb -) 250 mg in 50 mls @ 50 mls/hr IVPB DAILY [facility] Last Admin: 04/21/17 09:15 Dose: 50 mls/hr Methylprednisolone Sodium Succinate (Solu-Medrol -) 60 mg IVPB Q8H-IV [facility] Last Admin: 04/21/17 09:18 Dose: 60 mg Montelukast Sodium (Singulair -) 10 mg PO HS [facility] Last Admin: 04/20/17 21:53 Dose: 10 mg Pantoprazole Sodium (Protonix -) 40 mg PO DAILY [facility] Last Admin: 04/21/17 09:16 Dose: 40 mg Potassium Chloride (K-Dur -) 20 meq PO BID [facility] Last Admin: 04/21/17 09:56 Dose: 20 meq Fluticasone/Salmeterol (Advair 100mcg/50mcg -) 1 puff IH BID [facility] Last Admin: 04/21/17 09:16 Dose: 1 puff - Objective Vital Signs: Vital Signs Temperature 98.1 F 04/21/17 10:00 Pulse Rate 74 04/21/17 06:00 Respiratory Rate 20 04/21/17 10:00 Blood Pressure 127/66 04/21/17 10:00 O2 Sat by Pulse Oximetry (%) 98 04/21/17 09:00 Constitutional: Yes: Calm, Thin Eyes: Yes: WNL, Other Neck: Yes: WNL Cardiovascular: Yes: Pulse Irregular, S1, S2 Respiratory: Yes: Wheezes (LESS WHEEZES BILATERALLY) Gastrointestinal: Yes: Normal Bowel Sounds, Soft Extremities: Yes: WNL Edema: No Labs: CBC, BMP Assessment/Plan Problem List - Problems (1) Asthma exacerbation Code(s): J45.901 - UNSPECIFIED ASTHMA WITH (ACUTE) EXACERBATION Qualifiers: Asthma persistence: intermittent (2) UTI (urinary tract infection) Code(s): N39.0 - URINARY TRACT INFECTION, SITE NOT SPECIFIED (3) Thrombocytopenia Code(s): D69.6 - THROMBOCYTOPENIA, UNSPECIFIED (4) Hepatitis C Code(s): B19.20 - UNSPECIFIED VIRAL HEPATITIS C WITHOUT HEPATIC COMA Qualifiers: Viral hepatitis chronicity: chronic Hepatic coma status: without hepatic coma Qualified Code(s): B18.2 - Chronic viral hepatitis C (5) Atrial fibrillation Code(s): I48.91 - UNSPECIFIED ATRIAL FIBRILLATION Assessment/Plan Acute Asthma/COPD Exacerbation slowly improving Acute Bronchitis r/o UTI Atrial Fibrillation Thrombocytopenia Hep C - IV medrol same dose - inhaled bronchodilators - monitor peak flow - empiric antibiotics - singulair - O2 to keep spO2 >90% - monitor heart rate on standing nebs - monitor CBC,plt ct - DVT prophylaxis DR AVERY
[2017-04-21] MEDS: MONTELUKAST NA 10 MG TABLET PO SCH (22:43)
[2017-04-22] MEDS: methylPREDNISolone NA SUCC 125 MG/2 ML VIAL IVPB SCH (02:41)
[2017-04-22] MEDS: glipiZIDE 5 MG TABLET (FP) PO SCH (06:43)
--- NOTE | 2017-04-22 07:07 | PN ---
Progress Note (short form) - Note Progress Note: c/o dry cough but better overall Vital Signs Period Temp Pulse Resp BP Sys/Mcnamara Pulse Ox Last 24 Hr 97.7 F-98.6 F 72-106 18-20 108-127/55-78 98-98 s1s2 irreg.irreg lungs diffuse bilateral wheezing- better abd soft no edema aaox3 echo reviewed cxr no infiltrate acute asthma exacerbation bronchitis Afib hepatitis C UTI iv steroids to taper iv abx GI prophylaxis can not give ac due to severe thrombocytopenia due to HCV physical therapy as tolerated can transfer to regular floor Problem List - Problems (1) Asthma exacerbation Code(s): J45.901 - UNSPECIFIED ASTHMA WITH (ACUTE) EXACERBATION Qualifiers: Asthma persistence: intermittent (2) Bronchitis Code(s): J40 - BRONCHITIS, NOT SPECIFIED ACUTE OR CHRONIC (3) Thrombocytopenia Code(s): D69.6 - THROMBOCYTOPENIA, UNSPECIFIED (4) Asthma Code(s): J45.909 - UNSPECIFIED ASTHMA, UNCOMPLICATED Qualifiers: Asthma severity: moderate Asthma complication type: with acute exacerbation (5) Hepatitis C Code(s): B19.20 - UNSPECIFIED VIRAL HEPATITIS C WITHOUT HEPATIC COMA Qualifiers: Viral hepatitis chronicity: chronic Hepatic coma status: without hepatic coma Qualified Code(s): B18.2 - Chronic viral hepatitis C
[2017-04-22] MEDS: ALBUTEROL SO4 2.5/IPRATROPIUM 0.5 INH SOL 3 ML VIAL.NEB. NEB SCH ×3 (08:18→20:45)
[2017-04-22] MEDS: POTASSIUM CHLORIDE TABS 20 MEQ TABLET.ER (FP) PO SCH (09:48)
[2017-04-22] MEDS: FUROSEMIDE 40 MG TABLET (FP) PO SCH (09:48)
[2017-04-22] MEDS: PANTOPRAZOLE 40 MG TABLET (FP) PO SCH (09:48)
[2017-04-22] MEDS: methylPREDNISolone NA SUCC 40 MG/1 ML VIAL IVPB SCH ×2 (09:48→18:10)
[2017-04-22] MEDS: FLUTICASONE/SALMETEROL 100 MCG/50 MCG DISKUS IH SCH ×2 (09:48→21:53)
--- NOTE | 2017-04-22 11:04 | PN ---
Progress Note (short form) - Note Progress Note: PULMONARY Still with shortness of breath, cough and wheezing. Last Vital Signs Temp Pulse Resp BP Pulse Ox 98.3 F 88 20 115/66 98 04/22/17 06:00 04/22/17 08:53 04/22/17 08:53 04/22/17 08:53 04/22/17 08:52 Gen: mildly tachypneic with speaking Heart: RRR Lung: bilateral wheezes, rhonchi Abd: soft, nontender Ext: no edema CBC, BMP 04/20/17 08:55 04/20/17 08:55 Active Medications Albuterol Sulfate (Ventolin 0.083% Nebulizer Soln -) 1 amp NEB Q4H PRN PRN Reason: SHORT OF BREATH/WHEEZING Last Admin: 04/19/17 16:56 Dose: 1 amp Albuterol/Ipratropium (Duoneb -) 1 amp NEB RTID [facility] Last Admin: 04/22/17 08:18 Dose: 1 amp Furosemide (Lasix -) 40 mg PO DAILY [facility] Last Admin: 04/22/17 09:48 Dose: 40 mg Guaifenesin (Robitussin -) 10 ml PO Q6H PRN PRN Reason: COUGH Last Admin: 04/21/17 06:15 Dose: 10 ml Levofloxacin (Levaquin 250 Mg Premixed Ivpb -) 250 mg in 50 mls @ 50 mls/hr IVPB DAILY [facility] Last Admin: 04/22/17 09:48 Dose: 50 mls/hr Methylprednisolone Sodium Succinate (Solu-Medrol -) 40 mg IVPB Q8H-IV [facility] Last Admin: 04/22/17 09:48 Dose: 40 mg Montelukast Sodium (Singulair -) 10 mg PO HS [facility] Last Admin: 04/21/17 22:43 Dose: 10 mg Pantoprazole Sodium (Protonix -) 40 mg PO DAILY [facility] Last Admin: 04/22/17 09:48 Dose: 40 mg Potassium Chloride (K-Dur -) 20 meq PO BID [facility] Last Admin: 04/22/17 09:48 Dose: 20 meq Fluticasone/Salmeterol (Advair 100mcg/50mcg -) 1 puff IH BID [facility] Last Admin: 04/22/17 09:48 Dose: 1 puff A/P Acute Asthma/COPD Exacerbation Acute Bronchitis r/o UTI Atrial Fibrillation Thrombocytopenia Hep C - continue medrol at current dose - inhaled bronchodilators standing and PRN - monitor peak flow - continue empiric antibiotics - singulair - O2 to keep spO2 >90% - DVT prophylaxis Problem List - Problems (1) Asthma exacerbation Code(s): J45.901 - UNSPECIFIED ASTHMA WITH (ACUTE) EXACERBATION Qualifiers: Asthma persistence: intermittent (2) UTI (urinary tract infection) Code(s): N39.0 - URINARY TRACT INFECTION, SITE NOT SPECIFIED (3) Thrombocytopenia Code(s): D69.6 - THROMBOCYTOPENIA, UNSPECIFIED (4) Hepatitis C Code(s): B19.20 - UNSPECIFIED VIRAL HEPATITIS C WITHOUT HEPATIC COMA Qualifiers: Viral hepatitis chronicity: chronic Hepatic coma status: without hepatic coma Qualified Code(s): B18.2 - Chronic viral hepatitis C (5) Atrial fibrillation Code(s): I48.91 - UNSPECIFIED ATRIAL FIBRILLATION
[2017-04-22] MEDS ORDERED: ALBUTEROL SO4 0.083% IH SOL 2.5 MG/3 ML VIAL.NEB. NEB PRN (18:42)
[2017-04-22] MEDS ORDERED: PT OWN MED DRAWER 7, Y5N ONE (18:57)
[2017-04-22] MEDS: MONTELUKAST NA 10 MG TABLET PO SCH (21:39)
[2017-04-22] MEDS ORDERED: POTASSIUM CHLORIDE TABS 20 MEQ TABLET.ER (FP) PO SCH (22:00)
[2017-04-23] MEDS: methylPREDNISolone NA SUCC 40 MG/1 ML VIAL IVPB SCH ×3 (01:15→18:55)
[2017-04-23 06:39] LABS: BASO % 0.1 % (0-2.0); EOS % 0.1 % (0-4.5); HEMATOCRIT 35.2 % (32.4-45.2); HEMOGLOBIN 11.9 GM/dL (10.7-15.3); LYMPH % 7.8 % (8-40); MCH 29.5 pg (25.7-33.7); MCHC 33.9 g/dl (32.0-36.0); MEAN CELL VOLUME 86.9 fl (80-96); MEAN PLT VOLUME 10.6 fl (7.5-11.1); MONO % 3.8 % (3.8-10.2); NEUT % 88.2 % (42.8-82.8); PLATELET COUNT 71 K/MM3 (134-434); RBC 4.05 M/mm3 (3.60-5.2); WHITE BLOOD COUNT 2.7 K/mm3 (4.0-10.0)
[2017-04-23 07:58] LABS: CALCIUM 8.6 mg/dL (8.5-10.1); CHLORIDE 103 mmol/L (98-107); POTASSIUM 3.9 mmol/L (3.5-5.1); SODIUM 140 mmol/L (136-145)
[2017-04-23 08:04] LABS: ALBUMIN 3.1 g/dl (3.4-5.0); ALK PHOS 68 U/L (45-117); ANION GAP 14 (8-16); BILIRUBIN,TOTAL 0.8 mg/dL (0.2-1.0); BLOOD UREA NITROGEN 33 mg/dL (7-18); CO2 23 mmol/L (21-32); CREATININE 0.9 mg/dL (0.55-1.02); GLUCOSE,RANDOM 145 mg/dL (74-106); SGOT/AST 41 U/L (15-37); SGPT/ALT 56 U/L (12-78); TOT PROT 6.3 g/dl (6.4-8.2)
--- NOTE | 2017-04-23 08:39 | PN ---
Progress Note (short form) - Note Progress Note: CBC, BMP 04/23/17 06:00 04/23/17 06:00 Vital Signs Period Temp Pulse Resp BP Sys/Mcnamara Pulse Ox Last 24 Hr 97.8 F-98.9 F 72-103 20-20 110-127/62-75 98-98 s1s2 irreg.irreg lungs diffuse bilateral wheezing abd soft no edema aaox3 WALKS WITH pt echo reviewed cxr no infiltrate acute asthma exacerbation bronchitis Afib hepatitis C UTI iv steroids same dose today iv abx GI prophylaxis can not give ac due to severe thrombocytopenia due to HCV physical therapy as tolerated stool softener repeat cbc-monitor leukocytosis Problem List - Problems (1) Asthma exacerbation Code(s): J45.901 - UNSPECIFIED ASTHMA WITH (ACUTE) EXACERBATION Qualifiers: Asthma persistence: intermittent (2) Bronchitis Code(s): J40 - BRONCHITIS, NOT SPECIFIED ACUTE OR CHRONIC (3) Thrombocytopenia Code(s): D69.6 - THROMBOCYTOPENIA, UNSPECIFIED (4) Asthma Code(s): J45.909 - UNSPECIFIED ASTHMA, UNCOMPLICATED Qualifiers: Asthma severity: moderate Asthma complication type: with acute exacerbation (5) Hepatitis C Code(s): B19.20 - UNSPECIFIED VIRAL HEPATITIS C WITHOUT HEPATIC COMA Qualifiers: Viral hepatitis chronicity: chronic Hepatic coma status: without hepatic coma Qualified Code(s): B18.2 - Chronic viral hepatitis C
[2017-04-23] MEDS: ALBUTEROL SO4 2.5/IPRATROPIUM 0.5 INH SOL 3 ML VIAL.NEB. NEB SCH ×3 (09:10→20:03)
[2017-04-23] MEDS ORDERED: PT OWN MED DRAWER 7, Y5N ONE ×2 (10:56→21:17)
[2017-04-23] MEDS: PANTOPRAZOLE 40 MG TABLET (FP) PO SCH (10:57)
[2017-04-23] MEDS: FLUTICASONE/SALMETEROL 100 MCG/50 MCG DISKUS IH SCH ×2 (10:57→21:41)
[2017-04-23] MEDS: guaiFENesin 200 MG/10 ML 10 ML UNIT-DOSE CUPS PO PRN (10:57)
[2017-04-23] MEDS: FUROSEMIDE 40 MG TABLET (FP) PO SCH (10:57)
[2017-04-23] MEDS: POTASSIUM CHLORIDE TABS 10 MEQ TABLET.ER (FP) PO SCH ×2 (10:59→21:40)
--- NOTE | 2017-04-23 12:55 | PN ---
Progress Note, Physician History of Present Illness: pulmonary alert,oob-chair,c/o cough,less dyspneic - Current Medication List Current Medications: Active Medications Albuterol Sulfate (Ventolin 0.083% Nebulizer Soln -) 1 amp NEB Q4H PRN PRN Reason: SHORT OF BREATH/WHEEZING Albuterol/Ipratropium (Duoneb -) 1 amp NEB RTID [facility] Last Admin: 04/23/17 09:10 Dose: 1 amp Furosemide (Lasix -) 40 mg PO DAILY [facility] Last Admin: 04/23/17 10:57 Dose: 40 mg Guaifenesin (Robitussin -) 10 ml PO Q6H PRN PRN Reason: COUGH Last Admin: 04/23/17 10:57 Dose: 10 ml Levofloxacin (Levaquin 250 Mg Premixed Ivpb -) 250 mg in 50 mls @ 50 mls/hr IVPB DAILY [facility] Methylprednisolone Sodium Succinate (Solu-Medrol -) 40 mg IVPB Q8H-IV [facility] Last Admin: 04/23/17 10:57 Dose: 40 mg Montelukast Sodium (Singulair -) 10 mg PO HS [facility] Last Admin: 04/22/17 21:39 Dose: 10 mg Pantoprazole Sodium (Protonix -) 40 mg PO DAILY [facility] Last Admin: 04/23/17 10:57 Dose: 40 mg Potassium Chloride (K-Dur -) 10 meq PO BID [facility] Last Admin: 04/23/17 10:59 Dose: 10 meq Fluticasone/Salmeterol (Advair 100mcg/50mcg -) 1 puff IH BID [facility] Last Admin: 04/23/17 10:57 Dose: 1 puff - Objective Vital Signs: Vital Signs Temperature 97.8 F 04/23/17 06:00 Pulse Rate 103 H 04/23/17 06:00 Respiratory Rate 20 04/23/17 06:00 Blood Pressure 127/71 04/23/17 06:00 O2 Sat by Pulse Oximetry (%) 98 04/22/17 21:00 Constitutional: Yes: Calm, Thin Eyes: Yes: WNL HENT: Yes: WNL Neck: Yes: WNL Cardiovascular: Yes: Pulse Irregular, S1, S2 Respiratory: Yes: Wheezes (bilateral wheezes) Gastrointestinal: Yes: Normal Bowel Sounds, Soft Extremities: Yes: WNL Edema: No Labs: CBC, BMP 04/23/17 06:00 04/23/17 06:00 INR, PTT INR 1.20 (0.82-1.09) H 04/19/17 09:35 Assessment/Plan Problem List - Problems (1) Asthma exacerbation Code(s): J45.901 - UNSPECIFIED ASTHMA WITH (ACUTE) EXACERBATION Qualifiers: Asthma persistence: intermittent (2) UTI (urinary tract infection) Code(s): N39.0 - URINARY TRACT INFECTION, SITE NOT SPECIFIED (3) Thrombocytopenia Code(s): D69.6 - THROMBOCYTOPENIA, UNSPECIFIED (4) Hepatitis C Code(s): B19.20 - UNSPECIFIED VIRAL HEPATITIS C WITHOUT HEPATIC COMA Qualifiers: Viral hepatitis chronicity: chronic Hepatic coma status: without hepatic coma Qualified Code(s): B18.2 - Chronic viral hepatitis C (5) Atrial fibrillation Code(s): I48.91 - UNSPECIFIED ATRIAL FIBRILLATION Assessment/Plan Acute Asthma/COPD Exacerbation slowly improving Acute Bronchitis r/o UTI Atrial Fibrillation Thrombocytopenia Hep C - IV medrol - inhaled bronchodilators - monitor peak flow - empiric antibiotics - singulair - O2 to keep spO2 >90% - monitor heart rate on standing nebs - monitor CBC,plt ct - DVT prophylaxis DR AVERY
[2017-04-23] MEDS: SENNOSIDES 8.6MG TABLET (FP) PO SCH (21:40)
[2017-04-23] MEDS: MONTELUKAST NA 10 MG TABLET PO SCH (21:40)
[2017-04-24] MEDS: methylPREDNISolone NA SUCC 40 MG/1 ML VIAL IVPB SCH ×3 (01:42→17:22)
[2017-04-24] MEDS: ALBUTEROL SO4 2.5/IPRATROPIUM 0.5 INH SOL 3 ML VIAL.NEB. NEB SCH ×3 (08:05→20:25)
[2017-04-24 08:32] LABS: BASO % 0.2 % (0-2.0); HEMATOCRIT 36.5 % (32.4-45.2); HEMOGLOBIN 12.4 GM/dL (10.7-15.3); LYMPH % 5.8 % (8-40); MCH 29.6 pg (25.7-33.7); MEAN PLT VOLUME 10.3 fl (7.5-11.1); MONO % 4.9 % (3.8-10.2); NEUT % 89.1 % (42.8-82.8); PLATELET COUNT 79 K/MM3 (134-434); RDW 15.5 % (11.6-15.6); WHITE BLOOD COUNT 3.5 K/mm3 (4.0-10.0)
[2017-04-24 08:55] LABS: ALBUMIN 3.3 g/dl (3.4-5.0); ANION GAP 10 (8-16); BLOOD UREA NITROGEN 34 mg/dL (7-18); CALCIUM 8.3 mg/dL (8.5-10.1); CHLORIDE 103 mmol/L (98-107); CO2 26 mmol/L (21-32); GLUCOSE,RANDOM 128 mg/dL (74-106); SODIUM 139 mmol/L (136-145)
[2017-04-24 09:01] LABS: ALK PHOS 70 U/L (45-117); BILIRUBIN,TOTAL 1.1 mg/dL (0.2-1.0); SGOT/AST 38 U/L (15-37); SGPT/ALT 70 U/L (12-78); TOT PROT 6.3 g/dl (6.4-8.2)
--- NOTE | 2017-04-24 09:06 | PN ---
Progress Note (short form) - Note Progress Note: CBC, BMP 04/24/17 07:30 Vital Signs Period Temp Pulse Resp BP Sys/Mcnamara Pulse Ox Last 24 Hr 97.6 F-98.0 F 77-99 16-18 106-125/51-71 98 s1s2 irreg.irreg lungs diffuse bilateral wheezing abd soft no edema aaox3 wheezing on exertion cough present acute asthma exacerbation bronchitis Afib hepatitis C chronic UTI iv steroids same dose today iv abx day GI prophylaxis can not give ac due to severe thrombocytopenia due to HCV physical therapy as tolerated stool softener Problem List - Problems (1) Asthma exacerbation Code(s): J45.901 - UNSPECIFIED ASTHMA WITH (ACUTE) EXACERBATION Qualifiers: Asthma persistence: intermittent (2) Bronchitis Code(s): J40 - BRONCHITIS, NOT SPECIFIED ACUTE OR CHRONIC (3) Thrombocytopenia Code(s): D69.6 - THROMBOCYTOPENIA, UNSPECIFIED (4) Asthma Code(s): J45.909 - UNSPECIFIED ASTHMA, UNCOMPLICATED Qualifiers: Asthma severity: moderate Asthma complication type: with acute exacerbation (5) Hepatitis C Code(s): B19.20 - UNSPECIFIED VIRAL HEPATITIS C WITHOUT HEPATIC COMA Qualifiers: Viral hepatitis chronicity: chronic Hepatic coma status: without hepatic coma Qualified Code(s): B18.2 - Chronic viral hepatitis C
[2017-04-24] MEDS ORDERED: PT OWN MED DRAWER 7, Y5N ONE ×2 (09:46→19:23)
[2017-04-24] MEDS: SENNOSIDES 8.6MG TABLET (FP) PO SCH ×2 (09:56→21:26)
[2017-04-24] MEDS: PANTOPRAZOLE 40 MG TABLET (FP) PO SCH (09:56)
[2017-04-24] MEDS: FUROSEMIDE 40 MG TABLET (FP) PO SCH (09:56)
[2017-04-24] MEDS: POTASSIUM CHLORIDE TABS 10 MEQ TABLET.ER (FP) PO SCH ×2 (09:56→21:25)
[2017-04-24] MEDS: FLUTICASONE/SALMETEROL 100 MCG/50 MCG DISKUS IH SCH ×2 (09:57→21:32)
[2017-04-24] MEDS ORDERED: ACETAMINOPHEN 325 MG TABLET (FP) PO PRN (12:12)
[2017-04-24] MEDS: DOCUSATE SODIUM 100 MG CAPSULE (FP) PO SCH ×2 (13:12→21:26)
[2017-04-24] MEDS: guaiFENesin 200 MG/10 ML 10 ML UNIT-DOSE CUPS PO PRN (13:12)
--- NOTE | 2017-04-24 13:49 | PN ---
Progress Note, Physician History of Present Illness: pulmonary alert,still congested,+cough,+dyspnea - Current Medication List Current Medications: Active Medications Acetaminophen (Tylenol -) 650 mg PO Q6H PRN PRN Reason: HEADACHE Albuterol Sulfate (Ventolin 0.083% Nebulizer Soln -) 1 amp NEB Q4H PRN PRN Reason: SHORT OF BREATH/WHEEZING Albuterol/Ipratropium (Duoneb -) 1 amp NEB RTID [facility] Last Admin: 04/24/17 08:05 Dose: 1 amp Docusate Sodium (Colace -) 100 mg PO TID [facility] Last Admin: 04/24/17 13:12 Dose: 100 mg Furosemide (Lasix -) 40 mg PO DAILY [facility] Last Admin: 04/24/17 09:56 Dose: 40 mg Guaifenesin (Robitussin -) 10 ml PO Q6H PRN PRN Reason: COUGH Last Admin: 04/24/17 13:12 Dose: 10 ml Levofloxacin (Levaquin 250 Mg Premixed Ivpb -) 250 mg in 50 mls @ 50 mls/hr IVPB DAILY [facility] Last Admin: 04/24/17 09:57 Dose: 50 mls/hr Methylprednisolone Sodium Succinate (Solu-Medrol -) 40 mg IVPB Q8H-IV [facility] Last Admin: 04/24/17 09:57 Dose: 40 mg Montelukast Sodium (Singulair -) 10 mg PO HS [facility] Last Admin: 04/23/17 21:40 Dose: 10 mg Pantoprazole Sodium (Protonix -) 40 mg PO DAILY [facility] Last Admin: 04/24/17 09:56 Dose: 40 mg Potassium Chloride (K-Dur -) 10 meq PO BID [facility] Fluticasone/Salmeterol (Advair 100mcg/50mcg -) 1 puff IH BID [facility] Last Admin: 04/24/17 09:57 Dose: 1 puff Senna (Senna -) 1 tab PO BID [facility] Last Admin: 04/24/17 09:56 Dose: 1 tab - Objective Vital Signs: Vital Signs Temperature 98.7 F 04/24/17 09:00 Pulse Rate 102 H 04/24/17 09:00 Respiratory Rate 18 04/24/17 09:00 Blood Pressure 138/88 04/24/17 09:00 O2 Sat by Pulse Oximetry (%) 97 04/24/17 09:00 Constitutional: Yes: Calm, Thin Eyes: Yes: WNL HENT: Yes: WNL Neck: Yes: WNL Cardiovascular: Yes: Pulse Irregular, S1, S2 Respiratory: Yes: Rhonchi (bilateral rhonchi,wheezes) Gastrointestinal: Yes: Normal Bowel Sounds, Soft Extremities: Yes: WNL Edema: No Labs: CBC, BMP 04/24/17 07:30 04/24/17 07:30 INR, PTT INR 1.20 (0.82-1.09) H 04/19/17 09:35 Assessment/Plan Problem List - Problems (1) Asthma exacerbation Code(s): J45.901 - UNSPECIFIED ASTHMA WITH (ACUTE) EXACERBATION Qualifiers: Asthma persistence: intermittent (2) UTI (urinary tract infection) Code(s): N39.0 - URINARY TRACT INFECTION, SITE NOT SPECIFIED (3) Thrombocytopenia Code(s): D69.6 - THROMBOCYTOPENIA, UNSPECIFIED (4) Hepatitis C Code(s): B19.20 - UNSPECIFIED VIRAL HEPATITIS C WITHOUT HEPATIC COMA Qualifiers: Viral hepatitis chronicity: chronic Hepatic coma status: without hepatic coma Qualified Code(s): B18.2 - Chronic viral hepatitis C (5) Atrial fibrillation Code(s): I48.91 - UNSPECIFIED ATRIAL FIBRILLATION Assessment/Plan Acute Asthma/COPD Exacerbation slowly improving Acute Bronchitis r/o UTI Atrial Fibrillation Thrombocytopenia Hep C - IV medrol same dose - inhaled bronchodilators - monitor peak flow - empiric antibiotics - singulair - O2 to keep spO2 >90% - monitor heart rate on standing nebs - monitor CBC,plt ct - DVT prophylaxis DR AVERY
[2017-04-24] MEDS: ACETAMINOPHEN 325 MG TABLET (FP) PO PRN (17:29)
[2017-04-24] MEDS: MONTELUKAST NA 10 MG TABLET PO SCH (21:27)
[2017-04-25] MEDS: methylPREDNISolone NA SUCC 40 MG/1 ML VIAL IVPB SCH ×4 (01:55→17:58)
[2017-04-25] MEDS: DOCUSATE SODIUM 100 MG CAPSULE (FP) PO SCH ×3 (06:14→23:08)
[2017-04-25] MEDS: ALBUTEROL SO4 2.5/IPRATROPIUM 0.5 INH SOL 3 ML VIAL.NEB. NEB SCH (07:30)
[2017-04-25] MEDS: POTASSIUM CHLORIDE TABS 10 MEQ TABLET.ER (FP) PO SCH ×2 (10:06→23:08)
[2017-04-25] MEDS: PANTOPRAZOLE 40 MG TABLET (FP) PO SCH (10:07)
[2017-04-25] MEDS: guaiFENesin 200 MG/10 ML 10 ML UNIT-DOSE CUPS PO PRN (10:07)
[2017-04-25] MEDS: SENNOSIDES 8.6MG TABLET (FP) PO SCH ×3 (10:07→23:09)
--- NOTE | 2017-04-25 10:08 | PN ---
Progress Note (short form) - Note Progress Note: she is still coughing no fever or chills vs Vital Signs Period Temp Pulse Resp BP Sys/Mcnamara Pulse Ox Last 24 Hr 97.2 F-97.8 F 82-96 18-18 116-131/67-81 97 CBC, BMP 04/24/17 07:30 04/24/17 07:30 1s2 irreg.irreg lungs diffuse bilateral wheezing abd soft no edema aaox3 wheezing on exertion cough present acute asthma exacerbation bronchitis Afib hepatitis C chronic UTI iv steroids iv abx day GI prophylaxis
[2017-04-25] MEDS ORDERED: PT OWN MED DRAWER 7, Y5N ONE (10:09)
[2017-04-25] MEDS: FUROSEMIDE 40 MG TABLET (FP) PO SCH (10:11)
[2017-04-25] MEDS: FLUTICASONE/SALMETEROL 100 MCG/50 MCG DISKUS IH SCH (10:11)
--- NOTE | 2017-04-25 12:43 | PN ---
Progress Note, Physician History of Present Illness: PULMONARY ALERT,MIN IMPROVEMENT , COUGH - Current Medication List Current Medications: Active Medications Acetaminophen (Tylenol -) 650 mg PO Q6H PRN PRN Reason: HEADACHE Last Admin: 04/24/17 17:29 Dose: 650 mg Albuterol Sulfate (Ventolin 0.083% Nebulizer Soln -) 1 amp NEB Q4H PRN PRN Reason: SHORT OF BREATH/WHEEZING Albuterol/Ipratropium (Duoneb -) 1 amp NEB RTID [facility] Last Admin: 04/25/17 07:30 Dose: 1 amp Docusate Sodium (Colace -) 100 mg PO TID [facility] Last Admin: 04/25/17 06:14 Dose: Not Given Furosemide (Lasix -) 40 mg PO DAILY [facility] Last Admin: 04/25/17 10:11 Dose: 40 mg Guaifenesin (Robitussin -) 10 ml PO Q6H PRN PRN Reason: COUGH Last Admin: 04/25/17 10:07 Dose: 10 ml Levofloxacin (Levaquin 250 Mg Premixed Ivpb -) 250 mg in 50 mls @ 50 mls/hr IVPB DAILY [facility] Last Admin: 04/25/17 10:12 Dose: 50 mls/hr Methylprednisolone Sodium Succinate (Solu-Medrol -) 40 mg IVPB Q8H-IV [facility] Last Admin: 04/25/17 10:07 Dose: 40 mg Montelukast Sodium (Singulair -) 10 mg PO HS [facility] Last Admin: 04/24/17 21:27 Dose: 10 mg Pantoprazole Sodium (Protonix -) 40 mg PO DAILY [facility] Last Admin: 04/25/17 10:07 Dose: 40 mg Potassium Chloride (K-Dur -) 10 meq PO BID [facility] Last Admin: 04/25/17 10:06 Dose: 10 meq Fluticasone/Salmeterol (Advair 100mcg/50mcg -) 1 puff IH BID [facility] Last Admin: 04/25/17 10:11 Dose: 1 puff Senna (Senna -) 1 tab PO BID [facility] Last Admin: 04/25/17 10:52 Dose: Not Given - Objective Vital Signs: Vital Signs Temperature 97.8 F 04/25/17 06:00 Pulse Rate 96 H 04/25/17 10:00 Respiratory Rate 18 04/25/17 10:00 Blood Pressure 128/50 04/25/17 10:00 O2 Sat by Pulse Oximetry (%) 97 04/24/17 21:00 Constitutional: Yes: Calm, Thin Eyes: Yes: WNL HENT: Yes: WNL Neck: Yes: WNL Cardiovascular: Yes: Pulse Irregular, S1, S2 Respiratory: Yes: Wheezes (BILATERAL WHEEZES) Gastrointestinal: Yes: Normal Bowel Sounds, Soft Extremities: Yes: WNL Edema: No Labs: CBC, BMP Assessment/Plan Problem List - Problems (1) Asthma exacerbation Code(s): J45.901 - UNSPECIFIED ASTHMA WITH (ACUTE) EXACERBATION Qualifiers: Asthma persistence: intermittent (2) UTI (urinary tract infection) Code(s): N39.0 - URINARY TRACT INFECTION, SITE NOT SPECIFIED (3) Thrombocytopenia Code(s): D69.6 - THROMBOCYTOPENIA, UNSPECIFIED (4) Hepatitis C Code(s): B19.20 - UNSPECIFIED VIRAL HEPATITIS C WITHOUT HEPATIC COMA Qualifiers: Viral hepatitis chronicity: chronic Hepatic coma status: without hepatic coma Qualified Code(s): B18.2 - Chronic viral hepatitis C (5) Atrial fibrillation Code(s): I48.91 - UNSPECIFIED ATRIAL FIBRILLATION Assessment/Plan Acute Asthma/COPD Exacerbation slowly improving Acute Bronchitis r/o UTI Atrial Fibrillation Thrombocytopenia Hep C - IV medrol same dose - inhaled bronchodilators - spiriva - monitor peak flow - empiric antibiotics - singulair - O2 to keep spO2 >90% - monitor CBC,plt ct - DVT prophylaxis - chest x-ray DR AVERY
[2017-04-25] MEDS: TIOTROPIUM BROMIDE 18 MCG CAPSULES IH SCH (17:52)
[2017-04-25] MEDS: BUDESONIDE 0.5 MG/2 ML INH SUSP VIAL NEB SCH (20:00)
[2017-04-25] MEDS: ARFORMOTEROL TARTRATE 15 MCG/2 ML VIAL NEB SCH (20:00)
[2017-04-25] MEDS: MONTELUKAST NA 10 MG TABLET PO SCH (23:08)
[2017-04-26] MEDS: DOCUSATE SODIUM 100 MG CAPSULE (FP) PO SCH ×3 (06:04→21:41)
[2017-04-26] MEDS: BUDESONIDE 0.5 MG/2 ML INH SUSP VIAL NEB SCH ×2 (07:50→21:39)
[2017-04-26] MEDS: ARFORMOTEROL TARTRATE 15 MCG/2 ML VIAL NEB SCH ×2 (07:50→21:25)
[2017-04-26] MEDS: TIOTROPIUM BROMIDE 18 MCG CAPSULES IH SCH (10:04)
[2017-04-26] MEDS ORDERED: PT OWN MED DRAWER 7, Y5N ONE (10:09)
[2017-04-26] MEDS: FUROSEMIDE 40 MG TABLET (FP) PO SCH (10:13)
[2017-04-26] MEDS: methylPREDNISolone NA SUCC 40 MG/1 ML VIAL IVPB SCH ×2 (10:13→17:57)
[2017-04-26] MEDS: POTASSIUM CHLORIDE TABS 10 MEQ TABLET.ER (FP) PO SCH ×2 (10:13→21:41)
[2017-04-26] MEDS: PANTOPRAZOLE 40 MG TABLET (FP) PO SCH (10:13)
[2017-04-26] MEDS: SENNOSIDES 8.6MG TABLET (FP) PO SCH ×2 (10:14→21:41)
[2017-04-26] MEDS: ACETAMINOPHEN 325 MG TABLET (FP) PO PRN (10:17)
--- NOTE | 2017-04-26 12:08 | PN ---
Progress Note (short form) - Note Progress Note: she is still coughing no fever or chills vs Vital Signs CBC, BMP 04/24/17 07:30 04/24/17 07:30 Vital Signs Period Temp Pulse Resp BP Sys/Mcnamara Pulse Ox Last 24 Hr 97.4 F-97.9 F 87-94 18-19 112-127/52-68 97 1s2 irreg.irreg lungs diffuse bilateral wheezing abd soft no edema aaox3 wheezing on exertion cough present acute asthma exacerbation bronchitis Afib hepatitis C chronic UTI iv steroids iv abx day GI prophylaxis
--- NOTE | 2017-04-26 13:22 | PN ---
Progress Note, Physician History of Present Illness: PULMONARY ALERT,FEELING BETTER,LESS DYSPNEIC,+ COUGH - Current Medication List Current Medications: Active Medications Acetaminophen (Tylenol -) 650 mg PO Q6H PRN PRN Reason: HEADACHE Last Admin: 04/26/17 10:17 Dose: 650 mg Albuterol Sulfate (Ventolin 0.083% Nebulizer Soln -) 1 amp NEB Q4H PRN PRN Reason: SHORT OF BREATH/WHEEZING Last Admin: 04/25/17 14:32 Dose: 1 amp Arformoterol Tartrate (Brovana (Restricted To Pulmonology/Resp) -) 1 amp NEB RBID LEONEL Last Admin: 04/26/17 07:50 Dose: 1 amp Budesonide (Pulmicort 0.5 Mg Nebulizer -) 1 amp NEB RBID [facility]ON[facility] Last Admin: 04/26/17 07:50 Dose: 1 amp Docusate Sodium (Colace -) 100 mg PO TID [facility] Last Admin: 04/26/17 06:04 Dose: Not Given Furosemide (Lasix -) 40 mg PO DAILY [facility] Last Admin: 04/26/17 10:13 Dose: 40 mg Guaifenesin (Robitussin -) 10 ml PO Q6H PRN PRN Reason: COUGH Last Admin: 04/25/17 10:07 Dose: 10 ml Levofloxacin (Levaquin 250 Mg Premixed Ivpb -) 250 mg in 50 mls @ 50 mls/hr IVPB DAILY [facility] Last Admin: 04/26/17 10:16 Dose: 50 mls/hr Methylprednisolone Sodium Succinate (Solu-Medrol -) 40 mg IVPB Q8H-IV LEON[facility] Last Admin: 04/26/17 10:13 Dose: 40 mg Montelukast Sodium (Singulair -) 10 mg PO HS [facility] Last Admin: 04/25/17 23:08 Dose: 10 mg Pantoprazole Sodium (Protonix -) 40 mg PO DAILY [facility] Last Admin: 04/26/17 10:13 Dose: 40 mg Potassium Chloride (K-Dur -) 10 meq PO BID [facility] Last Admin: 04/26/17 10:13 Dose: 10 meq Senna (Senna -) 1 tab PO BID [facility] Last Admin: 04/26/17 10:14 Dose: 1 tab Tiotropium [place] (Spiriva -) 1 puff IH DAILY [facility] Last Admin: 04/26/17 10:04 Dose: 1 inh - Objective Vital Signs: Vital Signs Temperature 97.5 F L 04/26/17 06:00 Pulse Rate 88 04/26/17 06:00 Respiratory Rate 18 04/26/17 06:00 Blood Pressure 127/67 04/26/17 06:00 O2 Sat by Pulse Oximetry (%) 97 04/25/17 21:00 Constitutional: Yes: Calm, Thin Eyes: Yes: WNL HENT: Yes: WNL Neck: Yes: WNL Cardiovascular: Yes: Pulse Irregular, S1, S2 Respiratory: Yes: Wheezes (SCATTERED GLENN WHEEZES) Gastrointestinal: Yes: Normal Bowel Sounds, Soft Extremities: Yes: WNL Edema: No Labs: Assessment/Plan Problem List - Problems (1) Asthma exacerbation Code(s): J45.901 - UNSPECIFIED ASTHMA WITH (ACUTE) EXACERBATION Qualifiers: Asthma persistence: intermittent (2) UTI (urinary tract infection) Code(s): N39.0 - URINARY TRACT INFECTION, SITE NOT SPECIFIED (3) Thrombocytopenia Code(s): D69.6 - THROMBOCYTOPENIA, UNSPECIFIED (4) Hepatitis C Code(s): B19.20 - UNSPECIFIED VIRAL HEPATITIS C WITHOUT HEPATIC COMA Qualifiers: Viral hepatitis chronicity: chronic Hepatic coma status: without hepatic coma Qualified Code(s): B18.2 - Chronic viral hepatitis C (5) Atrial fibrillation Code(s): I48.91 - UNSPECIFIED ATRIAL FIBRILLATION Assessment/Plan Acute Asthma/COPD Exacerbation slowly improving Acute Bronchitis r/o UTI Atrial Fibrillation Thrombocytopenia Hep C - IV medrol - inhaled bronchodilators - spiriva - monitor peak flow - empiric antibiotics - singulair - O2 to keep spO2 >90% - monitor CBC,plt ct - DVT prophylaxis DR AVERY
[2017-04-26] MEDS: guaiFENesin 200 MG/10 ML 10 ML UNIT-DOSE CUPS PO PRN (14:42)
[2017-04-26] MEDS: MONTELUKAST NA 10 MG TABLET PO SCH (21:42)
[2017-04-27] MEDS: methylPREDNISolone NA SUCC 40 MG/1 ML VIAL IVPB SCH (02:07)
[2017-04-27] MEDS: DOCUSATE SODIUM 100 MG CAPSULE (FP) PO SCH ×3 (06:30→21:56)
[2017-04-27] MEDS: BUDESONIDE 0.5 MG/2 ML INH SUSP VIAL NEB SCH ×2 (07:30→21:00)
[2017-04-27] MEDS: ARFORMOTEROL TARTRATE 15 MCG/2 ML VIAL NEB SCH ×2 (07:30→21:00)
--- NOTE | 2017-04-27 08:58 | PN ---
Progress Note (short form) - Note Progress Note: Period Temp Pulse Resp BP Sys/Mcnamara Pulse Ox Last 24 Hr 97.4 F-991 F 75-88 18-20 102-137/54-80 99-99 s1s2 irreg.irreg lungs diffuse bilateral wheezing with wet cough abd soft no edema aaox3 wheezing on exertion cough present acute asthma exacerbation bronchitis Afib hepatitis C chronic UTI iv steroids dc abx, completed 7 days GI prophylaxis can not give ac due to severe thrombocytopenia due to HCV physical therapy as tolerated stool softener dc planing to SNF Problem List - Problems (1) Asthma exacerbation Code(s): J45.901 - UNSPECIFIED ASTHMA WITH (ACUTE) EXACERBATION Qualifiers: Asthma persistence: intermittent (2) Bronchitis Code(s): J40 - BRONCHITIS, NOT SPECIFIED ACUTE OR CHRONIC (3) Thrombocytopenia Code(s): D69.6 - THROMBOCYTOPENIA, UNSPECIFIED (4) Asthma Code(s): J45.909 - UNSPECIFIED ASTHMA, UNCOMPLICATED Qualifiers: Asthma severity: moderate Asthma complication type: with acute exacerbation (5) Hepatitis C Code(s): B19.20 - UNSPECIFIED VIRAL HEPATITIS C WITHOUT HEPATIC COMA Qualifiers: Viral hepatitis chronicity: chronic Hepatic coma status: without hepatic coma Qualified Code(s): B18.2 - Chronic viral hepatitis C
[2017-04-27] MEDS ORDERED: PT OWN MED DRAWER 7, Y5N ONE ×2 (09:47→10:45)
[2017-04-27] MEDS: POTASSIUM CHLORIDE TABS 10 MEQ TABLET.ER (FP) PO SCH ×2 (09:50→21:56)
[2017-04-27] MEDS: TIOTROPIUM BROMIDE 18 MCG CAPSULES IH SCH (09:50)
[2017-04-27] MEDS: FUROSEMIDE 40 MG TABLET (FP) PO SCH (09:50)
[2017-04-27] MEDS: PANTOPRAZOLE 40 MG TABLET (FP) PO SCH (09:50)
[2017-04-27] MEDS: SENNOSIDES 8.6MG TABLET (FP) PO SCH ×2 (09:50→21:56)
[2017-04-27] MEDS: methylPREDNISolone NA SUCC 40 MG/1 ML VIAL IVPUSH SCH ×3 (09:50→21:56)
[2017-04-27] MEDS: ACETAMINOPHEN 325 MG TABLET (FP) PO PRN ×2 (09:57→17:36)
[2017-04-27 10:01] LABS: BASO % 0.1 % (0-2.0); EOS % 0.1 % (0-4.5); HEMATOCRIT 41.4 % (32.4-45.2); HEMOGLOBIN 13.9 GM/dL (10.7-15.3); LYMPH % 3.6 % (8-40); MCH 29.1 pg (25.7-33.7); MCHC 33.5 g/dl (32.0-36.0); MEAN CELL VOLUME 86.9 fl (80-96); NEUT % 93.2 % (42.8-82.8); PLATELET COUNT 129 K/MM3 (134-434); RBC 4.77 M/mm3 (3.60-5.2); RDW 15.9 % (11.6-15.6); WHITE BLOOD COUNT 7.8 K/mm3 (4.0-10.0)
[2017-04-27 10:32] LABS: ALBUMIN 3.3 g/dl (3.4-5.0); ANION GAP 7 (8-16); BLOOD UREA NITROGEN 36 mg/dL (7-18); CALCIUM 8.4 mg/dL (8.5-10.1); CHLORIDE 99 mmol/L (98-107); CO2 30 mmol/L (21-32); GLUCOSE,RANDOM 172 mg/dL (74-106); SGOT/AST 23 U/L (15-37); SGPT/ALT 75 U/L (12-78); SODIUM 136 mmol/L (136-145)
[2017-04-27 10:35] LABS: ALK PHOS 77 U/L (45-117); BILIRUBIN,TOTAL 1.5 mg/dL (0.2-1.0); TOT PROT 6.5 g/dl (6.4-8.2)
--- NOTE | 2017-04-27 12:45 | PN ---
Progress Note (short form) - Note Progress Note: Still with some congested cough. No CP. No acute events overnight. Intake & Output 04/24/17 04/25/17 04/26/17 04/27/17 22:59 22:59 23:59 23:59 Intake Total 400 Output Total Balance 400 Weight 115 lb 9.6 oz Last Vital Signs Temp Pulse Resp BP Pulse Ox 97.0 F L 89 18 121/59 99 04/27/17 10:00 04/27/17 10:00 04/27/17 10:00 04/27/17 10:00 04/27/17 09:00 Active Medications Acetaminophen (Tylenol -) 650 mg PO Q6H PRN PRN Reason: HEADACHE Last Admin: 04/27/17 09:57 Dose: 650 mg Albuterol Sulfate (Ventolin 0.083% Nebulizer Soln -) 1 amp NEB Q4H PRN PRN Reason: SHORT OF BREATH/WHEEZING Last Admin: 04/25/17 14:32 Dose: 1 amp Arformoterol Tartrate (Brovana (Restricted To Pulmonology/Resp) -) 1 amp NEB RBID [facility]ON[facility] Last Admin: 04/27/17 07:30 Dose: 1 amp Budesonide (Pulmicort 0.5 Mg Nebulizer -) 1 amp NEB RBID [facility] Last Admin: 04/27/17 07:30 Dose: 1 amp Docusate Sodium (Colace -) 100 mg PO TID [facility] Last Admin: 04/27/17 06:30 Dose: Not Given Furosemide (Lasix -) 40 mg PO DAILY [facility] Last Admin: 04/27/17 09:50 Dose: 40 mg Guaifenesin (Robitussin -) 10 ml PO Q6H PRN PRN Reason: COUGH Last Admin: 04/26/17 14:42 Dose: 10 ml Methylprednisolone Sodium Succinate (Solu-Medrol -) 40 mg IVPUSH BID [facility] Last Admin: 04/27/17 09:51 Dose: Not Given Montelukast Sodium (Singulair -) 10 mg PO HS [facility] Last Admin: 04/26/17 21:42 Dose: 10 mg Pantoprazole Sodium (Protonix -) 40 mg PO DAILY [facility] Last Admin: 04/27/17 09:50 Dose: 40 mg Potassium Chloride (K-Dur -) 10 meq PO BID [facility] Last Admin: 04/27/17 09:50 Dose: 10 meq Senna (Senna -) 1 tab PO BID [facility] Last Admin: 04/27/17 09:50 Dose: 1 tab Tiotropium [place] (Spiriva -) 1 puff IH DAILY [facility] Last Admin: 04/27/17 09:50 Dose: 1 inh Constitutional: Yes: NAD Eyes: Yes: WNL HENT: Yes: WNL Neck: Yes: WNL Cardiovascular: Yes: Pulse Irregular, S1, S2 Respiratory: Yes: Scattered bilateral rhonchi / wheezes Gastrointestinal: Yes: Normal Bowel Sounds, Soft Extremities: Yes: WNL Edema: No Labs: Laboratory Results - last 24 hr 04/27/17 04/27/17 09:30 09:30 WBC 7.8 D RBC 4.77 Hgb 13.9 D Hct 41.4 MCV 86.9 MCH 29.1 MCHC 33.5 RDW 15.9 H Plt Count 129 L D MPV 9.0 D Neutrophils % 93.2 H Lymphocytes % 3.6 L D Monocytes % 3.0 L Eosinophils % 0.1 D Basophils % 0.1 Sodium 136 Potassium 4.0 Chloride 99 Carbon Dioxide 30 Anion Gap 7 L BUN 36 H Creatinine 1.0 Creat Clearance w eGFR 52.20 Random Glucose 172 H Calcium 8.4 L Total Bilirubin 1.5 H D AST 23 ALT 75 Alkaline Phosphatase 77 Total Protein 6.5 Albumin 3.3 L Assessment/Plan Problem List - Problems (1) Asthma exacerbation Code(s): J45.901 - UNSPECIFIED ASTHMA WITH (ACUTE) EXACERBATION Qualifiers: Asthma persistence: intermittent (2) UTI (urinary tract infection) Code(s): N39.0 - URINARY TRACT INFECTION, SITE NOT SPECIFIED (3) Thrombocytopenia Code(s): D69.6 - THROMBOCYTOPENIA, UNSPECIFIED (4) Hepatitis C Code(s): B19.20 - UNSPECIFIED VIRAL HEPATITIS C WITHOUT HEPATIC COMA Qualifiers: Viral hepatitis chronicity: chronic Hepatic coma status: without hepatic coma Qualified Code(s): B18.2 - Chronic viral hepatitis C (5) Atrial fibrillation Code(s): I48.91 - UNSPECIFIED ATRIAL FIBRILLATION Assessment/Plan Acute Asthma/COPD Exacerbation slowly improving Acute Bronchitis Atrial Fibrillation Thrombocytopenia Hep C - IV medrol decreased - inhaled bronchodilators - spiriva OD - monitor peak flow - ABX completed 7 days - singulair - O2 to keep spO2 >90% - monitor CBC,plt ct - DVT prophylaxis - D/C planning Dr Michaud
[2017-04-27] MEDS: MONTELUKAST NA 10 MG TABLET PO SCH (21:56)
[2017-04-28] MEDS: DOCUSATE SODIUM 100 MG CAPSULE (FP) PO SCH ×3 (06:28→21:37)
[2017-04-28] MEDS: ARFORMOTEROL TARTRATE 15 MCG/2 ML VIAL NEB SCH ×2 (09:00→20:48)
--- NOTE | 2017-04-28 09:17 | PN ---
Progress Note (short form) - Note Progress Note: CBC, BMP 04/27/17 09:30 04/27/17 09:30 Vital Signs Period Temp Pulse Resp BP Sys/Mcnamara Pulse Ox Last 24 Hr 97.0 F-97.8 F 70-89 16-20 107-129/56-69 99 s1s2 irreg.irreg lungs scattered wheezing-better abd soft no edema aaox3 wheezing on exertion cough present acute asthma exacerbation bronchitis Afib hepatitis C chronic UTI iv steroids -switch to po prednisone in am dc abx, completed 7 days GI prophylaxis resume baby asa physical therapy as tolerated stool softener dc planing to [facility] am Problem List - Problems (1) Asthma exacerbation Code(s): J45.901 - UNSPECIFIED ASTHMA WITH (ACUTE) EXACERBATION Qualifiers: Asthma persistence: intermittent (2) Bronchitis Code(s): J40 - BRONCHITIS, NOT SPECIFIED ACUTE OR CHRONIC (3) Thrombocytopenia Code(s): D69.6 - THROMBOCYTOPENIA, UNSPECIFIED (4) Asthma Code(s): J45.909 - UNSPECIFIED ASTHMA, UNCOMPLICATED Qualifiers: Asthma severity: moderate Asthma complication type: with acute exacerbation (5) Hepatitis C Code(s): B19.20 - UNSPECIFIED VIRAL HEPATITIS C WITHOUT HEPATIC COMA Qualifiers: Viral hepatitis chronicity: chronic Hepatic coma status: without hepatic coma Qualified Code(s): B18.2 - Chronic viral hepatitis C
[2017-04-28] MEDS: BUDESONIDE 0.5 MG/2 ML INH SUSP VIAL NEB SCH ×2 (09:27→20:55)
[2017-04-28] MEDS ORDERED: PT OWN MED DRAWER 7, Y5N ONE (10:09)
[2017-04-28] MEDS: TIOTROPIUM BROMIDE 18 MCG CAPSULES IH SCH (10:12)
[2017-04-28] MEDS: POTASSIUM CHLORIDE TABS 10 MEQ TABLET.ER (FP) PO SCH ×2 (10:12→21:37)
[2017-04-28] MEDS: FUROSEMIDE 40 MG TABLET (FP) PO SCH (10:12)
[2017-04-28] MEDS: methylPREDNISolone NA SUCC 40 MG/1 ML VIAL IVPUSH SCH ×2 (10:12→21:37)
[2017-04-28] MEDS: SENNOSIDES 8.6MG TABLET (FP) PO SCH ×2 (10:12→21:37)
[2017-04-28] MEDS: ASPIRIN COATED 81 MG TABLET.EC PO SCH (10:12)
[2017-04-28] MEDS: PANTOPRAZOLE 40 MG TABLET (FP) PO SCH (10:12)
[2017-04-28] MEDS: ACETAMINOPHEN 325 MG TABLET (FP) PO PRN (12:57)
--- NOTE | 2017-04-28 15:24 | PN ---
Progress Note (short form) - Note Progress Note: Still with some congested cough. No CP. No acute events overnight. Intake & Output 04/25/17 04/26/17 04/27/17 04/28/17 22:59 23:59 23:59 23:59 Intake Total 1460 615 Output Total Balance 1460 615 Weight 115 lb 9.6 oz 115 lb 9.6 oz Last Vital Signs Temp Pulse Resp BP Pulse Ox 98.1 F 77 22 104/51 99 04/28/17 14:44 04/28/17 14:44 04/28/17 14:44 04/28/17 14:44 04/27/17 20:56 Active Medications Acetaminophen (Tylenol -) 650 mg PO Q6H PRN PRN Reason: HEADACHE Last Admin: 04/28/17 12:57 Dose: 650 mg Albuterol Sulfate (Ventolin 0.083% Nebulizer Soln -) 1 amp NEB Q4H PRN PRN Reason: SHORT OF BREATH/WHEEZING Last Admin: 04/25/17 14:32 Dose: 1 amp Arformoterol Tartrate (Brovana (Restricted To Pulmonology/Resp) -) 1 amp NEB RBID [facility] Last Admin: 04/28/17 09:00 Dose: 1 amp Aspirin (Ecotrin -) 81 mg PO DAILY [facility] Last Admin: 04/28/17 10:12 Dose: 81 mg Budesonide (Pulmicort 0.5 Mg Nebulizer -) 1 amp NEB RBID [facility] Last Admin: 04/28/17 09:27 Dose: 1 amp Docusate Sodium (Colace -) 100 mg PO TID [facility] Last Admin: 04/28/17 15:11 Dose: Not Given Furosemide (Lasix -) 40 mg PO DAILY [facility] Last Admin: 04/28/17 10:12 Dose: 40 mg Guaifenesin (Robitussin -) 10 ml PO Q6H PRN PRN Reason: COUGH Last Admin: 04/26/17 14:42 Dose: 10 ml Methylprednisolone Sodium Succinate (Solu-Medrol -) 40 mg IVPUSH BID [facility] Last Admin: 04/28/17 10:12 Dose: 40 mg Montelukast Sodium (Singulair -) 10 mg PO HS [facility] Last Admin: 04/27/17 21:56 Dose: 10 mg Pantoprazole Sodium (Protonix -) 40 mg PO DAILY [facility] Last Admin: 04/28/17 10:12 Dose: 40 mg Potassium Chloride (K-Dur -) 10 meq PO BID [facility] Last Admin: 04/28/17 10:12 Dose: 10 meq Senna (Senna -) 1 tab PO BID [facility] Last Admin: 04/28/17 10:12 Dose: Not Given Tiotropium [place] (Spiriva -) 1 puff IH DAILY [facility] Last Admin: 04/28/17 10:12 Dose: 1 inh Constitutional: Yes: NAD Eyes: Yes: WNL HENT: Yes: WNL Neck: Yes: WNL Cardiovascular: Yes: Pulse Irregular, S1, S2 Respiratory: Yes: Scattered bilateral rhonchi Gastrointestinal: Yes: Normal Bowel Sounds, Soft Extremities: Yes: WNL Edema: No Labs: Assessment/Plan Problem List - Problems (1) Asthma exacerbation Code(s): J45.901 - UNSPECIFIED ASTHMA WITH (ACUTE) EXACERBATION Qualifiers: Asthma persistence: intermittent (2) UTI (urinary tract infection) Code(s): N39.0 - URINARY TRACT INFECTION, SITE NOT SPECIFIED (3) Thrombocytopenia Code(s): D69.6 - THROMBOCYTOPENIA, UNSPECIFIED (4) Hepatitis C Code(s): B19.20 - UNSPECIFIED VIRAL HEPATITIS C WITHOUT HEPATIC COMA Qualifiers: Viral hepatitis chronicity: chronic Hepatic coma status: without hepatic coma Qualified Code(s): B18.2 - Chronic viral hepatitis C (5) Atrial fibrillation Code(s): I48.91 - UNSPECIFIED ATRIAL FIBRILLATION Assessment/Plan Acute Asthma/COPD Exacerbation slowly improving Acute Bronchitis Atrial Fibrillation Thrombocytopenia Hep C - IV medrol decreased - inhaled bronchodilators - spiriva OD - monitor peak flow - ABX completed 7 days - singulair - O2 to keep spO2 >90% - DVT prophylaxis - D/C planning Dr Michaud
[2017-04-28] MEDS: MONTELUKAST NA 10 MG TABLET PO SCH (21:37)
[2017-04-29] MEDS: DOCUSATE SODIUM 100 MG CAPSULE (FP) PO SCH ×2 (06:42→14:57)
[2017-04-29] MEDS: ARFORMOTEROL TARTRATE 15 MCG/2 ML VIAL NEB SCH (08:35)
--- NOTE | 2017-04-29 08:37 | DS ---
Physical Examination Vital Signs: Vital Signs Temperature 97.5 F L 04/29/17 06:00 Pulse Rate 87 04/29/17 06:00 Respiratory Rate 18 04/29/17 06:00 Blood Pressure 128/77 04/29/17 06:00 O2 Sat by Pulse Oximetry (%) 100 04/28/17 20:35 Constitutional: Yes: No Distress, Calm Eyes: Yes: EOM Intact HENT: Yes: Normocephalic, Other (oral thrush present) Cardiovascular: Yes: Pulse Irregular (occasional exp.wheezing, improved) Respiratory: Yes: Regular, Wheezes (occasional expiratory), Other Gastrointestinal: Yes: Normal Bowel Sounds, Soft Extremities: Yes: WNL Edema: No Peripheral Pulses WNL: Yes Integumentary: Yes: Pressure Ulcer (thoracic stage 2-apply optifoam and offload) Neurological: Yes: WNL ...Motor Strength: WNL Psychiatric: Yes: WNL Labs: CBC, BMP 04/27/17 09:30 04/27/17 09:30 Discharge Summary Reason For Visit: SOB Current Active Problems Asthma exacerbation (Acute) Atrial fibrillation (Acute) Bronchitis (Acute) Fever (Acute) Thrombocytopenia (Acute) UTI (urinary tract infection) (Acute) Hospital Course: admitted for fever, respiratory distress, was diagnosed with bronchitis, UTI and acute asthma exacerbation. completed 7 days of levaquin. currently on steroid taper, getting better. medically stable to go to [facility] complete steroid taper there. continue GI prophylaxis. h/o hepatitis C with chronic thrombocytopenia. h/o Atrial fibrillation-not on AC due to thrombocytopenia, and severe bleeding in past. Condition: Fair - Instructions Referrals: Damián Hernández MD [Primary Care Provider] - Disposition: [facility] - Home Medications Comprehensive Discharge Medication List: Ambulatory Orders Furosemide [Lasix -] 40 mg PO DAILY 07/19/14 Albuterol 0.083% Nebulizer Sulema [Ventolin 0.083% Nebulizer Soln -] 1 neb NEB Q4H PRN #0 vial 07/26/14 Pantoprazole Sodium [Protonix -] 40 mg PO DAILY tablet.ec 07/26/14 Acetaminophen [Tylenol .Regular Strength -] 650 mg PO Q6H PRN tablet 04/29/17 Arformoterol Tartrate [Brovana -] 1 amp NEB RBID amp 04/29/17 Aspirin Coated [Ecotrin -] 81 mg PO DAILY tablet.ec 04/29/17 Budesonide [Pulmicort 0.5 mg Nebulizer -] 1 amp NEB RBID amp 04/29/17 Docusate Sodium [Colace -] 100 mg PO TID capsule 04/29/17 Guaifenesin [Robitussin -] 10 ml PO Q6H PRN cup 04/29/17 Montelukast Na [Singulair -] 10 mg PO HS tablet 04/29/17 Nystatin Oral Suspension - [Nystatin Oral Susp 287531 Units/5 ML -] 500,000 units PO Q6HPO cup 04/29/17 Potassium Chloride [K-Dur -] 10 meq PO BID tablet.er 04/29/17 Sennosides [Senna -] 1 tab PO BID tablet 04/29/17 Tiotropium [place] [Spiriva] 1 puff IH DAILY inh 04/29/17 predniSONE [Deltasone -] 40 mg PO DAILY tablet 04/29/17
[2017-04-29] MEDS: BUDESONIDE 0.5 MG/2 ML INH SUSP VIAL NEB SCH (08:40)
[2017-04-29] MEDS ORDERED: predniSONE 20 MG TABLET (UD) PO SCH (10:00)
[2017-04-29] MEDS: POTASSIUM CHLORIDE TABS 10 MEQ TABLET.ER (FP) PO SCH (10:30)
[2017-04-29] MEDS: SENNOSIDES 8.6MG TABLET (FP) PO SCH (10:30)
[2017-04-29] MEDS: FUROSEMIDE 40 MG TABLET (FP) PO SCH (10:30)
[2017-04-29] MEDS: ASPIRIN COATED 81 MG TABLET.EC PO SCH (10:30)
[2017-04-29] MEDS: PANTOPRAZOLE 40 MG TABLET (FP) PO SCH (10:30)
[2017-04-29] MEDS: TIOTROPIUM BROMIDE 18 MCG CAPSULES IH SCH (10:31)
[2017-04-29] MEDS ORDERED: NYSTATIN 500,000 UNITS/5 ML SUSPENSION PO SCH (12:00)
[2017-04-29] MEDS: ACETAMINOPHEN 325 MG TABLET (FP) PO PRN (12:41)
[2017-04-29 13:45] VITALS: BP 122/59; PULSE 77; TEMP 98.9
== END 2017-04-29 17:38 | DRG 191 ==
LOC: JER 09:08 → JERBED 12:22 → J4W 14:48 → J5S 04-22 11:03
PROVIDERS: ADMIT Internal Medicine; ATTEND Internal Medicine
DX: J44.1 Chronic obstructive pulmonary disease with (acute) exacerbation (principal); N39.0 Urinary tract infection, site not specified; J45.901 Unspecified asthma with (acute) exacerbation; B37.0 Candidal stomatitis; J20.9 Acute bronchitis, unspecified; J44.0 Chronic obstructive pulmonary disease with (acute) lower respiratory infection; E11.9 Type 2 diabetes mellitus without complications; M06.80 Other specified rheumatoid arthritis, unspecified site; I48.0 Paroxysmal atrial fibrillation; R50.9 Fever, unspecified; D64.9 Anemia, unspecified; D69.6 Thrombocytopenia, unspecified; L89.101 Pressure ulcer of unspecified part of back, stage 1; B18.2 Chronic viral hepatitis C; Z86.718 Personal history of other venous thrombosis and embolism; Z96.642 Presence of left artificial hip joint
CPT/HCPCS: 36415; 71045-TC-FY; 71046-TC-FY; 80053; 81003; 81015; 82550; 82803; 82962; 83605; 83880; 84484; 85025; 85610; 85730; 86850; 86900; 86901; 87040; 87070; 87086; 87186; 87430; 87804; 93005; 93010; 93306-TC; 94640; 97116-GP; 97161-GP; 99285-25

== ENCOUNTER 2017-06-12 17:46 | Inpatient (IN) | payer OTHER ==
--- NOTE | 2017-06-12 19:03 | PDOC ---
History of Present Illness - General Chief Complaint: Edema Stated Complaint: EDEMA Time Seen by Provider: 06/12/17 18:47 - History of Present Illness Initial Comments: 06/12/17 19:54 The patient is an 87 year old female with a history of COPD, DM, Afib, Edema who presents for evaluation of lower extremity edema. The patient is accompanied by family who assists in providing the history. They report that the patient has been experiencing worsening lower extremity edema over the past 14 days with worsening pain and redness. They report that the patient has been taking keflex on an outpatient basis without improvement in her symptoms. They otherwise denies fevers, chills, SOB, chest pain, nausea, vomiting, abdominal pain, or changes with urination or bowel movements. Past History - Past Medical History Allergies/Adverse Reactions: Allergies Allergy/AdvReac Type Severity Reaction Status Date / Time Penicillins Allergy Severe Difficulty Verified 04/19/17 09:21 Breathing shellfish derived Allergy Severe Difficulty Verified 04/19/17 09:21 Breathing Sulfa (Sulfonamide Allergy Intermediate Difficulty Verified 04/19/17 09:21 Antibiotics) Breathing [Sulfa(Sulfonamide Antibiotics)] Home Medications: Ambulatory Orders Furosemide [Lasix -] 40 mg PO DAILY 07/19/14 Albuterol 0.083% Nebulizer [place]ma [Ventolin 0.083% Nebulizer Soln -] 1 [facility] Q4H PRN #0 vial 07/26/14 Pantoprazole Sodium [Protonix -] 40 mg PO DAILY tablet.ec 07/26/14 Acetaminophen [Tylenol .Regular Strength -] 650 mg PO Q6H PRN tablet 04/29/17 Arformoterol Tartrate [Brovana -] 1 [facility] RBID amp 04/29/17 Aspirin Coated [Ecotrin -] 81 mg PO DAILY tablet.ec 04/29/17 Budesonide [Pulmicort 0.5 mg Nebulizer -] 1 [facility] RBID amp 04/29/17 Docusate Sodium [Colace -] 100 mg PO TID capsule 04/29/17 Guaifenesin [Robitussin -] 10 ml PO Q6H PRN cup 04/29/17 Montelukast Na [Singulair -] 10 mg PO HS tablet 04/29/17 Nystatin Oral Suspension - [Nystatin Oral Susp 228690 Units/5 ML -] 500,000 units PO Q6HPO cup 04/29/17 Potassium Chloride [K-Dur -] 10 meq PO BID tablet.er 04/29/17 Sennosides [Senna -] 1 tab PO BID tablet 04/29/17 Tiotropium [place] [Spiriva] 1 puff IH DAILY inh 04/29/17 predniSONE [Deltasone -] 40 mg PO DAILY tablet 04/29/17 Asthma: Yes Cardiac Disorders: Yes (atrial fibrillation) COPD: Yes Diabetes: Yes GI Disorders: Yes (diverticulitis) HTN: (HYPOTENSION.) - Surgical History Abdominal Surgery: Yes Appendectomy: Yes Cholecystectomy: Yes - Immunization History TDAP Vaccination: Yes Immunization Up to Date: Yes - Suicide/Smoking/Psychosocial Hx Smoking Status: No Smoking History: Never smoked Have you smoked in the past 12 months: No Number of Cigarettes Smoked Daily: 0 Information on smoking cessation initiated: No Hx Alcohol Use: No Drug/Substance Use Hx: No Substance Use Type: None Review of Systems - Review of Systems Comments:: 06/12/17 20:00 Constitutional: No fevers, chills, fatigue, malaise HEENT: No Rhinorrhea, nasal congestion, visual changes Cardiovascular: No chest pain, syncope, palpitations, lightheadedness Respiratory: No Cough, SOB, Hemoptysis, Gastrointestinal: No Abdominal pain, Nausea, Vomiting, Constipation, Diarrhea, Melena Genitourinary: No Dysuria, Frequency, Urgency, Hesitancy, Hematuria, Flank pain Musculoskeletal: Lower Extremity Swelling and Redness. No Myalgia, arthralgia Skin: No rashes, itching, bruising, pallor Neurologic: No Headache, Dizziness, Numbness, Weakness, or Tingling Psychiatric: No Hallucinations. No SI or HI *Physical Exam - Vital Signs Last Vital Signs Temp Pulse Resp BP Pulse Ox 97.9 F 84 20 116/62 100 06/12/17 18:27 06/12/17 18:27 06/12/17 18:27 06/12/17 18:27 06/12/17 18:27 - Physical Exam Comments: 06/12/17 20:02 General Appearance: Nourished. No Apparent Distress HEENT: EOMI, OMID. No Pharyngeal Erythema, Tonsillar Exudate, Tonsillar Erythema Neck: No Cervical Lymphadenopathy Respiratory/Chest: Lungs Clear, Normal Breath Sounds. No Crackles, Rales, Rhonchi, Wheezing Cardiovascular: Regular Rhythm, Regular Rate. No Murmur, Gallops, Rubs Gastrointestinal/Abdominal: Normal Bowel Sounds, Soft. No Guarding, Rebound, Tenderness Musculoskeletal: No CVA Tenderness Extremity: 4+ Pitting Edema to the Lower extremities bilaterally with Redness without warmth. Normal Capillary Refill Integumentary: Normal Color, Dry, Warm Neurologic: Fully Oriented, Alert, Normal Mood/Affect, Normal Response, Heart Score/ECG Review #1 ECG reviewed & interpreted by me at: 21:00 (Afib with a rate of 74 ) General ECG Interpretation: Normal Rate, Normal Intervals, No acute ischemic changes ED Treatment Course - LABORATORY CBC & Chemistry Diagram: 06/12/17 19:31 06/12/17 19:31 Medical Decision Making - Medical Decision Making 06/12/17 20:04 The patient is an 87 year old female with a history of COPD, DM, Afib, Edema who presents for evaluation of lower extremity edema. Differential includes but is not limited to: Cellulities, Venous insuffiency, Edema, CHF, infectious, metabolic derangement. Given the patient's physical exam, we will obtain a cbc , cmp, bnp, troponin, blood cultures, ekg to evaluate further. The patient will likely require admission for further management. We will treat in the meantime with iv tylenol and continue to monitor and reassess. We will also get in contact with the patient's primary care provider Dr. Becerra to discuss the case. 06/12/17 20:57 CBC is unremarkable. We will cover the patient with vanc and aztreonam here in the ED as well as lasix. We discussed the case with Dr. Frazier who accepted the patient for admission. *DC/Admit/Observation/Transfer Diagnosis at time of Disposition: Edema Qualifiers: Edema type: unspecified Qualified Code(s): R60.9 - Edema, unspecified - Discharge Dispostion Condition at time of disposition: Stable Admit: Yes - Referrals Referrals: Damián Hernández MD [Primary Care Provider] - - Patient Instructions - Post Discharge Activity
[2017-06-12 19:43] LABS: BASO % 0.8 % (0-2.0); EOS % 0.6 % (0-4.5); HEMATOCRIT 31.5 % (32.4-45.2); LYMPH % 23.5 % (8-40); MEAN CELL VOLUME 88.5 fl (80-96); MEAN PLT VOLUME 10.6 fl (7.5-11.1); MONO % 12.8 % (3.8-10.2); NEUT % 62.3 % (42.8-82.8); PLATELET COUNT 57 K/MM3 (134-434); RBC 3.56 M/mm3 (3.60-5.2); RDW 17.7 % (11.6-15.6); WHITE BLOOD COUNT 4.9 K/mm3 (4.0-10.0)
[2017-06-12] MEDS ORDERED: ACETAMINOPHEN 1000 MG/100 ML VIAL (NON FORMULARY) IVPB ONE (20:01)
--- NOTE | 2017-06-12 20:19 | PDOC ---
Attending Attestation - HPI HPI: 06/12/17 21:24 Patient is an 87 year old female with a significant past medical history of COPD , DM, Afib, Edema, who presents to the ED with complaints of bilateral leg edema. As per patient's daughter, patient's began to experiencing gradual worsening bilateral leg edema that began 2 weeks ago while at home. She reports patient has been experiencing associated bilateral leg pain and redness. Patient 's daughter states patient has been taking keflex with no relief of symptoms, prompting her to bring the patient into the ED for further evaluation. Denies chest pain, Sob. Denies nausea, vomiting. Denies contact with sick individuals, out of state travelling. Denies any other symptoms. Allergies: Penicillin, Shellfish, Sulfa Social history: No smoking. No alcohol. No illicit drugs. Surgical history: Abdominal Surgery, Appendectomy, Cholecystectomy PMD: Dr. Hernnádez <Johnathan Thomson - Last Filed: 06/12/17 21:24> - Resident Resident Name: Juvencio nSow - ED Attending Attestation I have performed the following: I have examined & evaluated the patient, The case was reviewed & discussed with the resident, I agree w/resident's findings & plan, Exceptions are as noted - Physicial Exam PE: GENERAL: Awake, alert, and fully oriented, in no acute distress HEAD: No signs of trauma EYES: PERRLA, EOMI, sclera anicteric, conjunctiva clear ENT: Auricles normal inspection, hearing grossly normal, nares patent, oropharynx clear without exudates. Moist mucosa NECK: Normal ROM, supple, no lymphadenopathy, JVD, or masses LUNGS: Breath sounds equal, clear to auscultation bilaterally. No wheezes, and no crackles HEART: Regular rate and rhythm, normal S1 and S2, no murmurs, rubs or gallops ABDOMEN: Soft, nontender, normoactive bowel sounds. No guarding, no rebound. No masses EXTREMITIES: Normal range of motion. 3+ pitting edema to BLE. BLE with erythema , worse on R side. No warmth. +Diffuse tenderness. No open lesions visualized. No clubbing or cyanosis. NEUROLOGICAL: Cranial nerves II through XII grossly intact. Normal speech. Motor and sensation intact. SKIN: Warm, Dry, normal turgor. - Medical Decision Making Pt with LE swelling and erythema, suspected cellulitis. Sent by Dr. Sanchez for admission. <Maira Almonte - Last Filed: 06/12/17 22:58>
[2017-06-12] MEDS ORDERED: VANCOMYCIN 1,000 MG in DEXTROSE 5%-WATER - 250 ML IVPB ONE (20:54)
[2017-06-12] MEDS ORDERED: AZTREONAM 1 GM in DEXTROSE 5%-WATER - 50 ML IVPB ONE (20:54)
[2017-06-12] MEDS ORDERED: FUROSEMIDE 40 MG/4 ML INJECTABLE VIAL IVPUSH ONE (20:54)
[2017-06-12] MEDS ORDERED: ACETAMINOPHEN INJECTION 100 ML IVPB ONE (22:00)
[2017-06-12] MEDS ORDERED: VANCOMYCIN 1 GRAM (PRE-DOCKED) 1,000 MG/250 ML BAG IVPB ONE (22:01)
[2017-06-12 22:08] LABS: ALBUMIN 3.1 g/dl (3.4-5.0); ALK PHOS 85 U/L (45-117); ANION GAP 4 (8-16); BILIRUBIN,TOTAL 0.9 mg/dL (0.2-1.0); BLOOD UREA NITROGEN 25 mg/dL (7-18); CALCIUM 7.8 mg/dL (8.5-10.1); CHLORIDE 109 mmol/L (98-107); CO2 27 mmol/L (21-32); CREATININE 0.7 mg/dL (0.55-1.02); GLUCOSE,RANDOM 125 mg/dL (74-106); POTASSIUM 3.2 mmol/L (3.5-5.1); SGOT/AST 23 U/L (15-37); SGPT/ALT 23 U/L (12-78); SODIUM 140 mmol/L (136-145); TOT PROT 6.1 g/dl (6.4-8.2)
[2017-06-12] MEDS ORDERED: traMADol HCL 50 MG TABLET PO ONE (22:32)
[2017-06-12] MEDS ORDERED: POTASSIUM CHLORIDE TABS 20 MEQ TABLET.ER (FP) PO ONE ×2 (22:33→23:13)
[2017-06-12] MEDS ORDERED: traMADol HCL 50 MG TABLET ONE (23:12)
[2017-06-12] MEDS ORDERED: FUROSEMIDE 40 MG/4 ML INJECTABLE VIAL ONE (23:13)
[2017-06-13] MEDS ORDERED: ALBUTEROL SO4 0.083% IH SOL 2.5 MG/3 ML VIAL.NEB. NEB PRN (00:11)
[2017-06-13] MEDS ORDERED: guaiFENesin 200 MG/10 ML 10 ML UNIT-DOSE CUPS PO PRN (00:11)
[2017-06-13 00:25] LABS: INR 1.12 (0.82-1.09); PROTHROMBIN TIME (PATIENT) 12.6 SEC (9.7-13.0)
[2017-06-13 01:53] VITALS: BMI 24.4
[2017-06-13] MEDS: NYSTATIN 500,000 UNITS/5 ML SUSPENSION PO SCH ×4 (06:00→23:40)
[2017-06-13] MEDS: DOCUSATE SODIUM 100 MG CAPSULE (FP) PO SCH ×3 (06:00→21:46)
[2017-06-13 06:54] LABS: HEMATOCRIT 29.7 % (32.4-45.2); HEMOGLOBIN 10.2 GM/dL (10.7-15.3); MCH 30.8 pg (25.7-33.7); MCHC 34.5 g/dl (32.0-36.0); MEAN CELL VOLUME 89.3 fl (80-96); MEAN PLT VOLUME 9.2 fl (7.5-11.1); RBC 3.32 M/mm3 (3.60-5.2); RDW 17.7 % (11.6-15.6); WHITE BLOOD COUNT 4.3 K/mm3 (4.0-10.0)
[2017-06-13 07:11] LABS: PLATELET COUNT 24 K/MM3 (134-434)
[2017-06-13 07:19] LABS: ALBUMIN 2.9 g/dl (3.4-5.0); ALK PHOS 76 U/L (45-117); ANION GAP 3 (8-16); BILIRUBIN,TOTAL 0.9 mg/dL (0.2-1.0); BLOOD UREA NITROGEN 24 mg/dL (7-18); CALCIUM 7.7 mg/dL (8.5-10.1); CHLORIDE 110 mmol/L (98-107); CO2 27 mmol/L (21-32); CREATININE 0.8 mg/dL (0.55-1.02); GLUCOSE,RANDOM 78 mg/dL (74-106); POTASSIUM 3.8 mmol/L (3.5-5.1); SGOT/AST 20 U/L (15-37); SGPT/ALT 21 U/L (12-78); SODIUM 140 mmol/L (136-145); TOT PROT 5.6 g/dl (6.4-8.2)
[2017-06-13] MEDS: BUDESONIDE 0.5 MG/2 ML INH SUSP VIAL NEB SCH ×2 (09:10→20:50)
[2017-06-13] MEDS: ARFORMOTEROL TARTRATE 15 MCG/2 ML VIAL NEB SCH ×2 (09:10→20:50)
--- NOTE | 2017-06-13 10:17 | PN ---
Progress Note (short form) - Note Progress Note: ID Consult dictated Bilateral LE cellulitis PCN/ Sulfa allergy Thrombocytopenia Steroid dependent COPD Pending c/s empiric cefazolin
[2017-06-13] MEDS ORDERED: DEXTROSE 5%-WATER - 50 ML IVPB ONE (11:12)
[2017-06-13] MEDS ORDERED: ceFAZolin SODIUM 1 GM VIAL ONE ×2 (11:12→16:42)
[2017-06-13] MEDS: SENNOSIDES 8.6MG TABLET (FP) PO SCH ×2 (11:22→21:46)
[2017-06-13] MEDS: predniSONE 20 MG TABLET (UD) PO SCH (11:22)
[2017-06-13] MEDS: TIOTROPIUM BROMIDE 18 MCG CAPSULES IH SCH (11:23)
[2017-06-13] MEDS: FUROSEMIDE 40 MG/4 ML INJECTABLE VIAL IVPUSH SCH (11:23)
[2017-06-13] MEDS: PANTOPRAZOLE 40 MG TABLET (FP) PO SCH (11:23)
[2017-06-13] MEDS: POTASSIUM CHLORIDE TABS 20 MEQ TABLET.ER (FP) PO SCH ×2 (11:23→21:46)
[2017-06-13] MEDS: CEFAZOLIN 1 GM in DEXTROSE 5%-WATER - 50 ML IVPB SCH ×2 (11:24→17:20)
--- NOTE | 2017-06-13 11:25 | CONS ---
INFECTIOUS DISEASE CONSULTATION DATE OF CONSULTATION: DATE OF DICTATION: 06/13/2017 The patient is an 87-year-old female with a history of steroid-dependent COPD, evaluated for bilateral lower extremity cellulitis. History obtained from the chart. She was admitted to the hospital on June 12, 2017, with a 2-week history of worsening lower extremity edema. She was evaluated in the emergency room where she was noted to have bilateral lower extremity edema, as well as erythema and warmth. She complains of lower extremity pain. No reports of any fever or chills. Patient had been treated with Keflex as an outpatient without significant improvement. Denies any trauma or injury to the lower extremities. Patient has a history of steroid-dependent COPD, as well as chronic thrombocytopenia. PAST MEDICAL HISTORY: Positive for COPD, diabetes mellitus, atrial fibrillation, and hepatitis C. PAST SURGICAL HISTORY: Status post appendectomy, cholecystectomy, left total knee replacement. ALLERGIES: PENICILLIN and SULFA. According to the notes, patient develops difficulty breathing with PENICILLIN and SULFA. However, has tolerated cephalosporins. MEDICATIONS: Lasix, albuterol, Protonix, Brovana, Tylenol, Ecotrin, Colace, Singulair, Spiriva, prednisone. SOCIAL HISTORY: Lives at home. Nonsmoker, nondrinker. SYSTEMS REVIEW: Neurologic: No loss of consciousness, seizure activity, focal weakness. Cardiac: Negative chest pain and palpitations. Respiratory: Negative cough or sputum production. Positive COPD. Gastrointestinal: Negative vomiting or diarrhea. Genitourinary: Negative for urinary tract infection. LABORATORY DATA: White count 4.3; neutrophils 62, lymphocytes 23, monocytes 12; hematocrit 29.7; platelet count 24. BUN 24, creatinine 0.8. Liver enzymes normal. Blood culture is pending. PHYSICAL EXAMINATION: General: She is awake and alert. She is an elderly female in no acute distress. Vital Signs: Temperature 97.4; blood pressure 103/74; pulse 77, regular; respirations 18 per minute. HEENT: Sclerae are anicteric. Heart: Sounds S1, S2. Lungs: Clear. Abdomen: Soft. No tenderness elicited. No mass, rebound, or rigidity. Extremities: Positive for bilateral lower extremity edema, confluent erythema, and warmth present, right greater than left lower extremity. IMPRESSION: 1. Bilateral lower extremity cellulitis. 2. PENICILLIN and SULFA ALLERGIES. 3. Steroid-dependent chronic obstructive pulmonary disease. 4. Chronic thrombocytopenia. Pending cultures, empiric antibiotic coverage with cefazolin 1 g IV piggyback every 8 hours. Patient has tolerated cephalosporins in the past. Elevation, analgesics. Diuretic therapy. Will follow. Thank you for the kind referral. VANDANA DUFFY M.D. [id number]
--- NOTE | 2017-06-13 11:31 | EKG ---
Test Reason : Blood Pressure : / mmHG Vent. Rate : 074 BPM Atrial Rate : 084 BPM P-R Int : 000 ms QRS Dur : 074 ms QT Int : 416 ms P-R-T Axes : 000 003 005 degrees QTc Int : 461 ms POOR DATA QUALITY, INTERPRETATION MAY BE ADVERSELY AFFECTED ATRIAL FIBRILLATION ABNORMAL ECG WHEN COMPARED WITH ECG OF 19-APR-2017 09:26, NO SIGNIFICANT CHANGE WAS FOUND Confirmed by NILDA ARMENTA, ABI ([id number]) on 06/13/2017 11:31:06 AM Referred By: Confirmed By:ABI MUNGUIA MD
--- NOTE | 2017-06-13 17:10 | HP ---
DATE OF ADMISSION: 06/12/2017 CHIEF COMPLAINT: Leg swelling and redness for 1 week. HISTORY OF PRESENT ILLNESS: This is an 87-year-old female with a past medical history of COPD, diabetes mellitus, atrial fibrillation, chronic lower extremity edema with venous stasis, who presents to the emergency room with worsening redness and swelling of both lower legs over the last 1 week. The patient received antibiotics as an outpatient without improvement and has come to the emergency room with worsening cellulitis. There are no other associated complaints. PAST MEDICAL HISTORY: As above. PAST SURGICAL HISTORY: Abdominal surgery, appendectomy and cholecystectomy. ALLERGIES: SHELLFISH, SULFA AND PENICILLINS. HOME MEDICATIONS: Reviewed. REVIEW OF SYSTEMS: Unremarkable except for presenting complaints. FAMILY AND SOCIAL HISTORY: Unremarkable. PHYSICAL EXAMINATION: General: This is an elderly female in no acute distress. Vital Signs: Temperature on admission was 97.9 degrees Fahrenheit, pulse 84 per minute and regular, respiratory rate 18 per minute and nonlabored, blood pressure 116/62, oxygen saturation 100%. HEENT: Within normal limits. Neck: Supple with no JVD. Chest: Clear to auscultation. Heart: Rate and rhythm and regular. S1 and S2 heard. Abdomen: Soft, nontender, nondistended with normal bowel sounds. Extremities: Three plus edema bilaterally with increased temperature and redness consistent with cellulitis. Neurologic: The patient was awake, alert, and oriented x3 with no gross focal neurological deficits. LABORATORY EXAMINATION: WBC count 4.9, hemoglobin 11, hematocrit 31.5%, platelet count 57. Sodium 140, potassium 3.2, BUN 25, creatinine 0.7. B-type natriuretic peptide was 1764. IMPRESSION: 1. Cellulitis. 2. Chronic venous stasis with leg edema. 3. History of chronic obstructive pulmonary disease. 4. Diabetes mellitus. 5. Atrial fibrillation. 6. Edema. 7. Thrombocytopenia. PLAN: The patient will be admitted and will be started on IV antibiotics. Her usual medications will be continued and infectious disease consultation has been requested. Further management will be according to the results of these interventions. ARLEN VIGIL M.D. [id number]
[2017-06-13] MEDS: MONTELUKAST NA 10 MG TABLET PO SCH (21:46)
[2017-06-13] MEDS ORDERED: VANCOMYCIN 1,000 MG in DEXTROSE 5%-WATER - 250 ML IVPB SCH (22:00)
[2017-06-14] MEDS: CEFAZOLIN 1 GM in DEXTROSE 5%-WATER - 50 ML IVPB SCH ×3 (02:55→17:29)
[2017-06-14] MEDS ORDERED: ceFAZolin SODIUM 1 GM VIAL ONE ×3 (02:56→17:22)
[2017-06-14] MEDS ORDERED: DEXTROSE 5%-WATER - 50 ML IVPB ONE ×3 (02:56→17:23)
[2017-06-14] MEDS: NYSTATIN 500,000 UNITS/5 ML SUSPENSION PO SCH ×2 (06:02→15:30)
[2017-06-14] MEDS: DOCUSATE SODIUM 100 MG CAPSULE (FP) PO SCH ×3 (06:03→22:13)
[2017-06-14] MEDS: ARFORMOTEROL TARTRATE 15 MCG/2 ML VIAL NEB SCH ×2 (07:32→20:41)
[2017-06-14] MEDS: BUDESONIDE 0.5 MG/2 ML INH SUSP VIAL NEB SCH ×2 (07:32→20:00)
[2017-06-14 07:49] LABS: HEMATOCRIT 29.7 % (32.4-45.2); HEMOGLOBIN 10.2 GM/dL (10.7-15.3); MCH 30.7 pg (25.7-33.7); MCHC 34.5 g/dl (32.0-36.0); MEAN CELL VOLUME 89.3 fl (80-96); MEAN PLT VOLUME 10.4 fl (7.5-11.1); RBC 3.33 M/mm3 (3.60-5.2); RDW 17.7 % (11.6-15.6); WHITE BLOOD COUNT 5.1 K/mm3 (4.0-10.0)
[2017-06-14 08:20] LABS: PLATELET COUNT 30 K/MM3 (134-434)
[2017-06-14 08:35] LABS: ALBUMIN 2.8 g/dl (3.4-5.0); ANION GAP 5 (8-16); BLOOD UREA NITROGEN 25 mg/dL (7-18); CALCIUM 8.3 mg/dL (8.5-10.1); CHLORIDE 108 mmol/L (98-107); CO2 27 mmol/L (21-32); CREATININE 0.9 mg/dL (0.55-1.02); GLUCOSE,RANDOM 88 mg/dL (74-106); POTASSIUM 4.2 mmol/L (3.5-5.1); SGOT/AST 22 U/L (15-37); SGPT/ALT 17 U/L (12-78); SODIUM 140 mmol/L (136-145)
[2017-06-14 08:38] LABS: ALK PHOS 75 U/L (45-117); BILIRUBIN,TOTAL 0.9 mg/dL (0.2-1.0); TOT PROT 5.8 g/dl (6.4-8.2)
--- NOTE | 2017-06-14 08:52 | PN ---
Progress Note (short form) - Note Progress Note: ID Cefazolin per Dr Morejon Selected Entries 06/14/17 06:00 Temperature 98.5 F Pulse Rate 69 Respiratory 20 Rate Blood Pressure 111/68 Exam Bilateral edema erythema Microbiology 06/12/17 20:07 Blood - Peripheral Venous Blood Culture - Preliminary NO GROWTH OBTAINED AFTER 24 HOURS, INCUBATION TO CONTINUE FOR 4 DAYS. 06/12/17 19:31 Blood - Peripheral Venous Blood Culture - Preliminary NO GROWTH OBTAINED AFTER 24 HOURS, INCUBATION TO CONTINUE FOR 4 DAYS. Laboratory Tests 06/13/17 06/14/17 06:05 06:25 WBC 5.1 RBC 3.33 L Hct 29.7 L Plt Count 30 L* D BUN 24 H Creatinine 0.8 Assessment Cellulitis on IV antibiotic Plan Discharge planning on oral antibiotic Seems better with IV antibiotic Angie ARMENTA
[2017-06-14] MEDS ORDERED: PT OWN MED DRAWER 7, Y5N ONE (10:39)
[2017-06-14] MEDS: FUROSEMIDE 40 MG/4 ML INJECTABLE VIAL IVPUSH SCH (10:54)
[2017-06-14] MEDS: SENNOSIDES 8.6MG TABLET (FP) PO SCH ×2 (10:55→22:13)
[2017-06-14] MEDS: TIOTROPIUM BROMIDE 18 MCG CAPSULES IH SCH (10:55)
[2017-06-14] MEDS: predniSONE 20 MG TABLET (UD) PO SCH (10:55)
[2017-06-14] MEDS: POTASSIUM CHLORIDE TABS 20 MEQ TABLET.ER (FP) PO SCH ×2 (10:55→22:13)
[2017-06-14] MEDS: PANTOPRAZOLE 40 MG TABLET (FP) PO SCH (10:55)
--- NOTE | 2017-06-14 14:14 | PN ---
Progress Note, Physician - Current Medication List Current Medications: Active Medications Acetaminophen (Tylenol -) 650 mg PO Q6H PRN PRN Reason: HEADACHE Albuterol Sulfate (Ventolin 0.083% Nebulizer Soln -) 1 amp NEB Q4H PRN PRN Reason: SHORT OF BREATH/WHEEZING Arformoterol Tartrate (Brovana (Restricted To Pulmonology/Resp) -) 1 amp NEB RBID LEONEL Last Admin: 06/14/17 07:32 Dose: 1 amp Budesonide (Pulmicort 0.5 Mg Nebulizer -) 1 amp NEB RBID LEONEL Last Admin: 06/14/17 07:32 Dose: 1 amp Docusate Sodium (Colace -) 100 mg PO TID LEONEL Last Admin: 06/14/17 06:03 Dose: 100 mg Furosemide (Lasix Injection -) 40 mg IVPUSH DAILY [facility] Last Admin: 06/14/17 10:54 Dose: 40 mg Guaifenesin (Robitussin -) 10 ml PO Q6H PRN PRN Reason: COUGH Cefazolin Sodium 1 gm/ (Dextrose) 50 mls @ 100 mls/hr IVPB Q8H-IV LEONEL Last Admin: 06/14/17 10:52 Dose: 100 mls/hr Montelukast Sodium (Singulair -) 10 mg PO HS [facility] Last Admin: 06/13/17 21:46 Dose: 10 mg Nystatin (Nystatin Oral Suspension -) 500,000 units PO Q6HPO LEONEL Last Admin: 06/14/17 06:02 Dose: 500,000 units Pantoprazole Sodium (Protonix -) 40 mg PO DAILY [facility] Last Admin: 06/14/17 10:55 Dose: 40 mg Potassium Chloride (K-Dur -) 20 meq PO BID LEONEL Last Admin: 06/14/17 10:55 Dose: 20 meq Prednisone (Deltasone -) 40 mg PO DAILY LEONEL Last Admin: 06/14/17 10:55 Dose: 40 mg Senna (Senna -) 1 tab PO BID LEONEL Last Admin: 06/14/17 10:55 Dose: 1 tab Tiotropium [place] (Spiriva -) 1 puff IH DAILY [facility] Last Admin: 06/14/17 10:55 Dose: 1 inh - Objective Vital Signs: Vital Signs Temperature 97.6 F 06/14/17 13:51 Pulse Rate 77 06/14/17 13:51 Respiratory Rate 20 06/14/17 10:00 Blood Pressure 130/60 06/14/17 13:51 O2 Sat by Pulse Oximetry (%) 98 06/14/17 09:00 Constitutional: Yes: No Distress Neck: Yes: Supple Cardiovascular: Yes: Regular Rate and Rhythm, S1, S2 Respiratory: Yes: CTA Bilaterally Gastrointestinal: Yes: Normal Bowel Sounds, Soft Neurological: Yes: Alert, Oriented. No: Loss of Sensation Labs: CBC, BMP 06/14/17 06:25 06/14/17 06:25 INR, PTT INR 1.12 (0.82-1.09) 06/12/17 20:07 Problem List - Problems (1) Cellulitis Assessment/Plan: Improving on IV Cefazolin, blood c/s negative so far. Code(s): L03.90 - CELLULITIS, UNSPECIFIED Qualifiers: Site of cellulitis of extremity: lower extremity Laterality: unspecified laterality
[2017-06-14] MEDS: MONTELUKAST NA 10 MG TABLET PO SCH (22:13)
[2017-06-14] MEDS: MINERAL OIL/PETROLAT/WATER TOPICAL CREAM 113 GM JAR TP SCH (22:14)
[2017-06-15] MEDS: ACETAMINOPHEN 325 MG TABLET (FP) PO PRN ×2 (00:01→21:34)
[2017-06-15] MEDS ORDERED: ceFAZolin SODIUM 1 GM VIAL ONE ×3 (02:17→17:57)
[2017-06-15] MEDS ORDERED: DEXTROSE 5%-WATER - 50 ML IVPB ONE ×2 (02:17→11:54)
[2017-06-15] MEDS: CEFAZOLIN 1 GM in DEXTROSE 5%-WATER - 50 ML IVPB SCH ×3 (02:30→18:09)
[2017-06-15] MEDS: DOCUSATE SODIUM 100 MG CAPSULE (FP) PO SCH ×3 (05:26→21:26)
[2017-06-15 07:34] LABS: HEMATOCRIT 30.4 % (32.4-45.2); HEMOGLOBIN 10.5 GM/dL (10.7-15.3); MCH 30.9 pg (25.7-33.7); MCHC 34.4 g/dl (32.0-36.0); MEAN CELL VOLUME 89.6 fl (80-96); MEAN PLT VOLUME 10.2 fl (7.5-11.1); PLATELET COUNT 40 K/MM3 (134-434); RBC 3.39 M/mm3 (3.60-5.2); RDW 17.4 % (11.6-15.6); WHITE BLOOD COUNT 5.1 K/mm3 (4.0-10.0)
[2017-06-15] MEDS: ARFORMOTEROL TARTRATE 15 MCG/2 ML VIAL NEB SCH ×2 (07:36→20:26)
[2017-06-15] MEDS: BUDESONIDE 0.5 MG/2 ML INH SUSP VIAL NEB SCH ×2 (07:36→20:26)
[2017-06-15 07:58] LABS: ALBUMIN 2.9 g/dl (3.4-5.0); ALK PHOS 85 U/L (45-117); ANION GAP 4 (8-16); BILIRUBIN,TOTAL 0.5 mg/dL (0.2-1.0); BLOOD UREA NITROGEN 32 mg/dL (7-18); CALCIUM 8.2 mg/dL (8.5-10.1); CHLORIDE 109 mmol/L (98-107); CO2 27 mmol/L (21-32); CREATININE 0.9 mg/dL (0.55-1.02); GLUCOSE,RANDOM 100 mg/dL (74-106); POTASSIUM 4.4 mmol/L (3.5-5.1); SGOT/AST 20 U/L (15-37); SGPT/ALT 14 U/L (12-78); SODIUM 140 mmol/L (136-145); TOT PROT 5.9 g/dl (6.4-8.2)
--- NOTE | 2017-06-15 09:21 | PN ---
Progress Note (short form) - Note Progress Note: admitted for severe lower extremity edema and cellulitis much improved after iv diuresis and abx dyspnea at rest at baseline CBC, BMP 06/15/17 06:03 06/15/17 06:03 Vital Signs Period Temp Pulse Resp BP Sys/Mcnamara Pulse Ox Last 24 Hr 97.6 F-98.8 F 75-87 18-20 111-134/57-70 97 s1s2 irreg.irreg. 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
[2017-06-15] MEDS ORDERED: predniSONE 20 MG TABLET (UD) PO SCH (10:00)
--- NOTE | 2017-06-15 10:56 | PN ---
Progress Note (short form) - Note Progress Note: ID Cefazolin day 3 Selected Entries 06/15/17 05:29 Temperature 97.7 F Pulse Rate 75 Respiratory 20 Rate Blood Pressure 111/57 Bilateral LE erythema and swelling improved on IV Plan I think we can stop her IV and give Keflex 500mg bid for 5 days Angie ARMENTA
[2017-06-15] MEDS: PANTOPRAZOLE 40 MG TABLET (FP) PO SCH (11:57)
[2017-06-15] MEDS: SENNOSIDES 8.6MG TABLET (FP) PO SCH ×2 (11:58→21:26)
[2017-06-15] MEDS: TIOTROPIUM BROMIDE 18 MCG CAPSULES IH SCH (11:58)
[2017-06-15] MEDS: POTASSIUM CHLORIDE TABS 20 MEQ TABLET.ER (FP) PO SCH ×2 (11:58→21:26)
[2017-06-15] MEDS: MINERAL OIL/PETROLAT/WATER TOPICAL CREAM 113 GM JAR TP SCH ×2 (12:06→21:26)
[2017-06-15] MEDS: MONTELUKAST NA 10 MG TABLET PO SCH (21:26)
[2017-06-16] MEDS ORDERED: ceFAZolin SODIUM 1 GM VIAL ONE (01:00)
[2017-06-16] MEDS ORDERED: DEXTROSE 5%-WATER - 50 ML IVPB ONE (01:01)
[2017-06-16] MEDS: CEFAZOLIN 1 GM in DEXTROSE 5%-WATER - 50 ML IVPB SCH (01:08)
[2017-06-16] MEDS: DOCUSATE SODIUM 100 MG CAPSULE (FP) PO SCH ×3 (06:21→21:56)
[2017-06-16] MEDS: ARFORMOTEROL TARTRATE 15 MCG/2 ML VIAL NEB SCH ×2 (07:46→19:55)
[2017-06-16] MEDS: BUDESONIDE 0.5 MG/2 ML INH SUSP VIAL NEB SCH ×2 (07:46→20:10)
--- NOTE | 2017-06-16 09:19 | PN ---
Progress Note (short form) - Note Progress Note: admitted for severe lower extremity edema and cellulitis much improved after iv diuresis and abx dyspnea at rest at baseline Vital Signs Period Temp Pulse Resp BP Sys/Mcnamara Pulse Ox Last 24 Hr 98.3 F-98.4 F 71-72 18-18 109-113/58-67 97 s1s2 irreg.irreg. 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
[2017-06-16] MEDS ORDERED: PT OWN MED DRAWER 7, Y5N ONE ×2 (11:03→11:29)
[2017-06-16] MEDS: SENNOSIDES 8.6MG TABLET (FP) PO SCH ×2 (11:11→21:55)
[2017-06-16] MEDS: PANTOPRAZOLE 40 MG TABLET (FP) PO SCH (11:11)
[2017-06-16] MEDS: TIOTROPIUM BROMIDE 18 MCG CAPSULES IH SCH (11:11)
[2017-06-16] MEDS: predniSONE 10 MG TABLET (UD) PO SCH (11:12)
[2017-06-16] MEDS: CEPHALEXIN MONOHYDRATE 500 MG CAPSULE (UD) PO SCH ×2 (11:12→21:55)
[2017-06-16] MEDS: POTASSIUM CHLORIDE TABS 20 MEQ TABLET.ER (FP) PO SCH ×2 (11:12→21:55)
[2017-06-16] MEDS: MINERAL OIL/PETROLAT/WATER TOPICAL CREAM 113 GM JAR TP SCH ×2 (11:12→21:56)
[2017-06-16] MEDS: MONTELUKAST NA 10 MG TABLET PO SCH (21:55)
[2017-06-17] MEDS: DOCUSATE SODIUM 100 MG CAPSULE (FP) PO SCH (05:50)
[2017-06-17 06:10] VITALS: TEMP 98.6
[2017-06-17] MEDS: ARFORMOTEROL TARTRATE 15 MCG/2 ML VIAL NEB SCH (07:36)
[2017-06-17] MEDS: BUDESONIDE 0.5 MG/2 ML INH SUSP VIAL NEB SCH (07:36)
[2017-06-17] MEDS ORDERED: PT OWN MED DRAWER 7, Y5N ONE (09:29)
--- NOTE | 2017-06-17 09:29 | DS ---
Physical Examination Vital Signs: Vital Signs Temperature 98.6 F 06/17/17 06:00 Pulse Rate 80 06/17/17 06:00 Respiratory Rate 20 06/17/17 06:00 Blood Pressure 122/74 06/17/17 06:00 O2 Sat by Pulse Oximetry (%) 98 06/16/17 22:00 Constitutional: Yes: No Distress, Calm Eyes: Yes: EOM Intact HENT: Yes: Normocephalic Neck: Yes: Trachea Midline Cardiovascular: Yes: Pulse Irregular Respiratory: Yes: Regular, CTA Bilaterally Gastrointestinal: Yes: Normal Bowel Sounds, Soft Edema: No Peripheral Pulses WNL: Yes Integumentary: Yes: Venous Stasis Changes (no open wounds on legs at present) Neurological: Yes: WNL, Oriented Labs: CBC, BMP 06/15/17 06:03 06/15/17 06:03 Discharge Summary Reason For Visit: EDEMA Current Active Problems Cellulitis (Acute) Edema (Acute) Hospital Course: admitted for bilateral severe lower extremity edema and cellulitis. was diuresed with iv lasix, d=recieved iv abx for 5 days, currently edema is much improved, erythema resolving, medically stable to go home with [facility]. overall poor prognosis and frail medical status d/w pt Condition: Guarded - Instructions Referrals: Damián Hernández MD [Primary Care Provider] - Disposition: [facility]/HOME HEALTH CARE - Home Medications Comprehensive Discharge Medication List: Ambulatory Orders Furosemide [Lasix -] 40 mg PO DAILY 07/19/14 Albuterol 0.083% Nebulizer Sulema [Ventolin 0.083% Nebulizer Soln -] 1 neb NEB Q4H PRN #0 vial 07/26/14 Pantoprazole Sodium [Protonix -] 40 mg PO DAILY tablet.ec 07/26/14 Acetaminophen [Tylenol .Regular Strength -] 650 mg PO Q6H PRN tablet 04/29/17 Budesonide [Pulmicort 0.5 mg Nebulizer -] 1 amp NEB RBID amp 04/29/17 Docusate Sodium [Colace -] 100 mg PO TID capsule 04/29/17 Guaifenesin [Robitussin -] 10 ml PO Q6H PRN cup 04/29/17 Montelukast Na [Singulair -] 10 mg PO HS tablet 04/29/17 Nystatin Oral Suspension - [Nystatin Oral Susp 484848 Units/5 ML -] 500,000 units PO Q6HPO cup 04/29/17 Potassium Chloride [K-Dur -] 10 meq PO BID tablet.er 04/29/17 Sennosides [Senna -] 1 tab PO BID tablet 04/29/17 Tiotropium [place] [Spiriva] 1 puff IH DAILY inh 04/29/17 Cephalexin Monohydrate [Keflex -] 500 mg PO BID #8 capsule 06/17/17 Mineral Oil/Petrolat,Wht/Water [Eucerin (Small Jar) -] 1 applic TP BID jar 04/05
[2017-06-17] MEDS: TIOTROPIUM BROMIDE 18 MCG CAPSULES IH SCH (09:35)
[2017-06-17] MEDS: POTASSIUM CHLORIDE TABS 20 MEQ TABLET.ER (FP) PO SCH (09:36)
[2017-06-17] MEDS: SENNOSIDES 8.6MG TABLET (FP) PO SCH (09:36)
[2017-06-17] MEDS: MINERAL OIL/PETROLAT/WATER TOPICAL CREAM 113 GM JAR TP SCH (09:36)
[2017-06-17] MEDS: PANTOPRAZOLE 40 MG TABLET (FP) PO SCH (09:36)
[2017-06-17] MEDS: predniSONE 10 MG TABLET (UD) PO SCH (09:36)
[2017-06-17] MEDS: CEPHALEXIN MONOHYDRATE 500 MG CAPSULE (UD) PO SCH (09:36)
[2017-06-17 11:23] VITALS: BP 96/51; PULSE 92
== END 2017-06-17 13:51 | disposition home health service (06) | DRG 603 ==
LOC: JER 17:46 → JERBED 20:52 → J6S 06-13 00:47
PROVIDERS: ADMIT Internal Medicine; ATTEND Internal Medicine
DX: L03.115 Cellulitis of right lower limb (principal); L03.116 Cellulitis of left lower limb; R60.9 Edema, unspecified; D69.6 Thrombocytopenia, unspecified; I48.2 Chronic atrial fibrillation; J45.909 Unspecified asthma, uncomplicated; Z88.0 Allergy status to penicillin; E11.9 Type 2 diabetes mellitus without complications; J44.9 Chronic obstructive pulmonary disease, unspecified; B18.2 Chronic viral hepatitis C
CPT/HCPCS: 36415; 71045-TC-FY; 80053; 82550; 83880; 84484; 85025; 85027; 85610; 85730; 87040; 93005; 93010; 94640; 94761; 97116-GP; 97161-GP; 99283-25; J0131